=== PATIENT | male | born 1990 | race Caucasian/White ===

== ENCOUNTER → 2019-10-24 13:39 | Outpatient (BNVA) | payer MEDICAID, SELFPAY | PROVIDERS: Family Provider Family Medicine; PCP Family Medicine; Visit Provider Nurse Practitioner | DX: E11.65 Type 2 diabetes mellitus with hyperglycemia (principal); F41.9 Anxiety disorder, unspecified; F32.9 Major depressive disorder, single episode, unspecified; M1A.0790 Idiopathic chronic gout, unspecified ankle and foot, without tophus (tophi); Z76.89 Persons encountering health services in other specified circumstances | CPT/HCPCS: 80053; 80061; 82044; 83036 ==

== ENCOUNTER 2019-11-07 20:25 | Emergency (ER) | payer MEDICAID, SELFPAY ==
[2019-11-07 20:29] VITALS: BP 141/86; PULSE 95; RESP 16; TEMP 36.7; O2SAT 97; BMI 33.3
== END 2019-11-07 21:36 | disposition left against medical advice (07) ==
PROVIDERS: Emergency Provider Nurse Practitioner Family; Family Provider Family Medicine; PCP Nurse Practitioner
DX: K64.9 Unspecified hemorrhoids (principal); Z53.21 Procedure and treatment not carried out due to patient leaving prior to being seen by health care provider
CPT/HCPCS: 99281

== ENCOUNTER → 2019-11-13 17:06 | Outpatient (BNVA) | payer MEDICAID, SELFPAY | PROVIDERS: Family Provider Family Medicine; PCP Nurse Practitioner; Visit Provider Nurse Practitioner Family | DX: R05 Cough (principal); J40 Bronchitis, not specified as acute or chronic | CPT/HCPCS: 87804 ==

== ENCOUNTER 2020-03-28 09:49 | Emergency (ER) | payer MEDICAID, SELFPAY ==
[2020-03-28 10:02] VITALS: BP 137/86; PULSE 115; RESP 18; TEMP 37.2; O2SAT 94; BMI 34.9
--- NOTE | 2020-03-28 10:07 | ED_ITS ---
HPI - URI/Sore Throat General: Chief Complaint: Fever Stated Complaint: FEVER,SOB COUGH Time Seen by Provider: 03/28/20 10:03 Source: patient Mode of arrival: ambulatory Limitations: no limitations History of Present Illness: HPI Narrative: Patient is a 29-year-old male who presents to ED today with complaints of shortness of breath, difficulty breathing, cough over the past 2 to 3 days. He reports low-grade fevers of up to 100.1. He tells me he has had a sick contact, his sister, however then describes her symptoms only being congestion. He states he does have a history of asthma and has been out of his albuterol inhaler over the past few months. He states this does not feel like a typical asthma attack. Patient has not had any episodes of hemoptysis. He is not a smoker. He is having a little bit of a sore throat. He denies abdominal pain, nausea, vomiting, diarrhea. Urinary habits have been normal. No rash. 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 Patient reports he was asymptomatic when he was tested. MD elicited complaint: cough and other (SOB, difficulty breathing) Onset (ago): day(s) Consistency: constant Severity: moderate Able to tolerate fluids by mouth: Yes Exacerbating factors: exertion Relieving factors: nothing Associated symptoms: Reports fever(s) (up to 100.1); Deny abdominal pain, chills, chest pain, diarrhea, headache(s), nausea or vomiting Review of Systems Const: Reports: fever(s) (up to 100.1) and fatigue; Denies: chills or body aches Eyes: Denies: change in vision, blurry vision, photophobia, floaters or seeing flashes ENMT: Reports: odynophagia; Denies: throat pain or enlarged tonsils Card: Reports: dyspnea on exertion; Denies: chest pain, palpitations, irregular heart rhythm, edema, swelling of feet/ankles, lightheadedness, syncope, pre-syncope, orthopnea or leg pain with exertion Resp: Reports: dyspnea, productive cough and chest congestion; Denies: pain on inspiration or hemoptysis GI: Denies: abdominal pain, nausea, vomiting or diarrhea : Denies: flank pain, difficulty urinating, dysuria, urinary frequency or urinary urgency Musc: Denies: neck pain or back pain Skin/Breast: Denies: rash Neuro: Denies: headache(s) PFSH ED PFSH: Medical History (Updated 03/28/20 @ 11:54 by ANUJ Covarrubias) Anxiety and depression Asthma Diabetes GERD (gastroesophageal reflux disease) Gout Hypertension PTSD (post-traumatic stress disorder) Family History Mother Hypertension Father Heart disease Brother Hypertension Other Diabetes Social History Smoking and tobacco status: never smoked Marital status: Current occupational status: employed History of recent travel: No Physical Exam Const: COMMON NORMALS: no acute distress, patient oriented x3, no limitations and alert ORIENTATION/CONSCIOUSNESS: Yes oriented to person, Yes oriented to place and Yes oriented to time HENMT: COMMON NORMALS: normocephalic, atraumatic and oropharynx normal HEAD & SCALP: normal to inspection, normocephalic and atraumatic THROAT: posterior oropharynx normal, tonsils normal and uvula midline Chest: COMMONS NORMALS: normal inspection of the chest and normal palpation of entire chest wall Resp: COMMON NORMALS: normal respiratory effort and clear to auscultation bilaterally AUSCULTATION: clear to auscultation bilaterally Cardio: COMMON NORMALS: regular rate and regular rhythm RATE: regular rate RHYTHM: regular rhythm GI: COMMON NORMALS: Normal to inspection, nondistended, normoactive bowel sounds present, Soft to palpation, non-tender, No hepatosplenomegaly present and no masses PALPATION: Yes Soft to palpation and Yes No hepatosplenomegaly present Extremity: COMMON NORMALS: normal to inspection GENERAL: Yes normal exam except as noted Neuro: COMMON NORMALS: patient oriented x3 SENSORIUM/ORIENTATION: Yes alert, Yes oriented to person, Yes oriented to place and Yes oriented to time Skin: COMMON NORMALS: no rashes or lesions noted GENERAL SKIN EXAM: no rashes or lesions noted Course Vital Signs: Vital signs: Vital Signs Temperature 99.7 F H 03/28/20 10:16 Pulse Rate 105 H 03/28/20 12:09 Respiratory Rate 18 03/28/20 12:09 Blood Pressure 126/70 03/28/20 12:09 Pulse Oximetry 95 03/28/20 12:09 MDM - URI/Sore Throat MDM Narrative: Medical decision making narrative: Patient clinically appears well. He has no signs or symptoms of respiratory distress at this time. He will be retested for COVID now that he is symptomatic. Patient mildly tachycardic at 105. Lung sounds are clear to auscultation. His CXR is normal. He has a mild white count of 14.3. Patient's d-dimer is the slightest bit elevated at 0.62. He has no risk factors for pulmonary embolus. He has a Well's score of 1.5. At this time we will go ahead and treat patient for probable bronchitis and recommend he follow-up with PCP. He needs to quarantine until results of his COVID testing returns. Return to ED precautions given on worsening symptoms. Lab Data: Labs: Lab Results 03/28/20 03/28/20 03/28/20 Range/Units 11:03 11:03 11:03 WBC 14.3 H (4.0-10.0) 10^3/ uL RBC 5.48 H (4.1-5.3) 10^6/u L Hgb 16.6 (11.7-16.6) g/dL Hct 47.1 (42.0-52.0) % MCV 85.9 (80-94) fL MCH 30.3 (28.0-34.0) pg MCHC 35.2 (30.0-36.0) g/dL RDW 13.1 (12.1-15.1) % Plt Count 242 (130-400) 10^3/c mm MPV 10.4 (7.4-10.4) fL Neut % (Auto) 72.8 % Lymph % (Auto) 14.2 % [place] % (Auto) 7.7 % Eos % (Auto) 4.1 % Baso % (Auto) 0.6 % Neut # (Auto) 10.43 H (1.8-7.7) 10^3/u L Lymph # (Auto) 2.0 (0.8-4.8) 10^3/u L Madison # (Auto) 1.1 H (0.2-0.9) 10^3/u L Eos # (Auto) 0.6 (0.0-0.8) 10^3/u L Baso # (Auto) 0.1 (0.0-0.1) 10^3/u L Nucleated RBC % (a uto) 0 % Nucleated RBCs # 0.0 /100WBC D-Dimer 0.62 H (0-0.59) ug/mIFE U Sodium 137 (136-145) mmol/L Potassium 3.7 (3.5-5.1) mmol/L Chloride 100 (98-107) mmol/L Carbon Dioxide 22 (22-29) mmol/L Anion Gap 18.7 (5-19) BUN 8 (6-20) mg/dL Creatinine 0.9 (0.7-1.2) mg/dL GFR Calculation 99.8 (90-130) mL/min Glucose 244 H (65-115) mg/dL Calculated Osmolal ity 288 (285-295) mOsm/k g Calcium 9.1 (8.5-10.5) mg/dL Total Bilirubin 1.7 H (0.15-1.2) mg/dL AST 23 (0-40) U/L ALT 54 H (0-41) U/L Alkaline Phosphata se 75 (40-130) IU/L Total Protein 8.7 (6.6-8.7) g/dL Albumin 4.8 (3.5-5.2) g/dL Globulin 3.9 (1.3-4.6) g/dL Imaging Data^: CXR: Radiologist's impression: [address] [address] XRay Report Signed Patient: Vin Daugherty Unit #: [id number] : 1990 Age/Sex: 29 / M ADM Date: 03/28/20 Loc: ER Room/Bed: Attending Dr: Ordering Provider/Ordering MD: Emily Sanchez Date of Service: 03/28/20 Procedure(s): XR chest 1V portable [id number] Accession Number(s): [id number] Report Number: [id number] WS: [id number] Portable AP upright chest, 03/28/2020 Clinical Data: chest pain Comparison: PA and lateral chest, 08/28/2019. Findings: No nodules, masses or effusions are seen. The heart is normal. The pulmonary vascularity is not increased. No pneumonia or pneumothorax is seen. XR/XR chest 1V portable [id number] Impression: Negative chest. Dictated By: Jacqueline Trujillo MD Signed By: Jacqueline Trujillo MD Signed Date/Time: 03/28/20 1039 DD/ 1038 Discharge Plan Discharge Patient Disposition: Home Clinical Impression: Bronchitis Condition: Stable Prescriptions: New azithromycin 250 mg tablet See Rx Instructions .ROUTE .COMPLEX Qty: 6 RF: 0 No Action metformin 1,000 mg tablet 1,000 mg PO BID 30 Days Qty: 60 RF: 5 allopurinol 300 mg tablet 300 mg PO DAILY RF: 0 albuterol sulfate [ProAir HFA] 90 mcg/actuation HFA aerosol inhaler 2 puff INHALATION Q6H PRN (Reason: shortness of breath or wheezing) Qty: 8.5 RF: 0 Mucinex 600 mg Tablet Extended Release 12hr 1,200 mg PO Q4H PRN (Reason: unknown) RF: 0 Discharge Orders: Discharge Order (Routine); Ordered 03/28/20 Ordered By: Emily Sanchez Referrals: Kim Banks FNP [Primary Care Provider] - Activity Restrictions/Additional Instructions: Return to the emergency department for worsening shortness of breath, cough, uncontrollable fevers, chest pains, or any other concerns you may have. You need to contact your assisted and let them know your current symptoms so they can advise you on your orientation date. You need to quarantine until results of your testing. Discharge Date/Time: 03/28/20 12:09 Coding Level of Care Code ED Manager Rehab for Chg 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
--- NOTE | 2020-03-28 10:08 | XR_ITS ---
WS: [id number] Portable AP upright chest, 03/28/2020 Clinical Data: chest pain Comparison: PA and lateral chest, 08/28/2019. Findings: No nodules, masses or effusions are seen. The heart is normal. The pulmonary vascularity is not increased. No pneumonia or pneumothorax is seen. XR/XR chest 1V portable [id number] Impression: Negative chest.
[2020-03-28 10:16] VITALS: BP 137/86; PULSE 117; RESP 20; TEMP 37.6; O2SAT 93
[2020-03-28] MEDS: albuterol 8 gm MDI 2 PUFF INHALATION (10:33)
[2020-03-28 10:34] VITALS: RESP 18
[2020-03-28 11:15] LABS: Basophils # 0.1 10^3/uL (0.0-0.1); Basophils % 0.6 %; Eosinophils # 0.6 10^3/uL (0.0-0.8); Eosinophils % 4.1 %; Hematocrit 47.1 % (42.0-52.0); Hemoglobin 16.6 g/dL (11.7-16.6); Lymphocytes % 14.2 %; Mean Corpuscular HGB Conc 35.2 g/dL (30.0-36.0); Mean Corpuscular Hemoglobin 30.3 pg (28.0-34.0); Mean Corpuscular Volume 85.9 fL (80-94); Mean Platelet Volume 10.4 fL (7.4-10.4); Monocytes # 1.1 10^3/uL (0.2-0.9); Monocytes % 7.7 %; Neutrophils # 10.43 10^3/uL (1.8-7.7); Neutrophils % 72.8 %; Nucleated Red Blood Cells % 0 %; Platelet Count 242 10^3/cmm (130-400); Red Blood Count 5.48 10^6/uL (4.1-5.3); Red Cell Distribution Width 13.1 % (12.1-15.1); White Blood Count 14.3 10^3/uL (4.0-10.0)
[2020-03-28 11:29] LABS: D Dimer 0.62 ug/mIFEU (0-0.59)
[2020-03-28 11:33] LABS: Alanine Aminotransferase 54 U/L (0-41); Albumin Level 4.8 g/dL (3.5-5.2); Alkaline Phosphatase 75 IU/L (40-130); Anion Gap 18.7 (5-19); Aspartate Amino Transferase 23 U/L (0-40); Blood Urea Nitrogen 8 mg/dL (6-20); Calcium 9.1 mg/dL (8.5-10.5); Carbon Dioxide 22 mmol/L (22-29); Chloride 100 mmol/L (98-107); Globulin 3.9 g/dL (1.3-4.6); Glomerular Filtration Rate 99.8 mL/min (90-130); Glucose 244 mg/dL (65-115); Osmolality Calculated 288 mOsm/kg (285-295); Potassium 3.7 mmol/L (3.5-5.1); Sodium 137 mmol/L (136-145); Total Bilirubin 1.7 mg/dL (0.15-1.2); Total Protein 8.7 g/dL (6.6-8.7)
[2020-03-28 12:09] VITALS: BP 126/70; PULSE 105; RESP 18; O2SAT 95
[2020-03-29 19:39] LABS: Quest SARS-CoV-2 RNA NOT DETECTED (NOT DETECTED)
== END 2020-03-28 12:09 | disposition home or self-care (01) ==
PROVIDERS: Emergency Provider Physician Assistant; PCP Nurse Practitioner
DX: J40 Bronchitis, not specified as acute or chronic (principal); E11.9 Type 2 diabetes mellitus without complications; I10 Essential (primary) hypertension; J45.909 Unspecified asthma, uncomplicated
CPT/HCPCS: 12345; 36415; 71045; 80053; 85025; 85378; 87635; 94640; 99282; 99283; J3535

== ENCOUNTER 2020-05-19 21:47 | Emergency (ER) | payer MEDICAID, SELFPAY ==
[2020-05-19 22:09] VITALS: BP 137/78; PULSE 101; RESP 16; TEMP 36.6; O2SAT 97; BMI 34.6
--- NOTE | 2020-05-19 22:34 | ED_ITS ---
HPI - Epistaxis General: Chief complaint: Epistaxis Stated complaint: nosebleed/multiple complaints Time Seen by Provider: 05/19/20 22:34 Source: patient Mode of arrival: ambulatory Limitations: no limitations History of Present Illness: HPI Narrative: Patient is a 29-year-old male who presents to ED today for evaluation of a nosebleed that happened earlier today. Patient tells me a few hours ago he was sitting on the toilet when he felt his right nare began to run and states he noticed some blood on the toilet paper when he wiped his nose. Patient denies any injury or trauma to his nose. He is not on anticoagulation. He has not had any bleeding since the event. He has no other complaints at this time. MD complaint: epistaxis Location: right nostril Onset (ago): hour(s) Duration: now resolved Associated symptoms: Reports no associated symptoms; Deny fever(s), headache(s), sinus pain or vomiting Review of Systems Const: Denies: fever(s), chills, body aches, fatigue or malaise Eyes: Denies: change in vision, blurry vision, photophobia, floaters or seeing flashes ENMT: Reports: epistaxis; Denies: throat pain, odynophagia, swelling of lips/tongue, dental pain, ear or mastoid pain, ear discharge, change in hearing, tinnitus, disequilibrium, nasal discharge, nasal congestion, nasal obstruction, post nasal drip or sinus pain Card: Denies: chest pain Resp: Denies: dyspnea GI: Denies: abdominal pain, nausea or vomiting Musc: Denies: neck pain or back pain Skin/Breast: Denies: rash Neuro: Denies: headache(s), numbness in extremities, weakness in extremities, sensory changes, lack of coordination, difficulty walking, frequent falls, dizziness, vertigo, confusion, behavioral changes, Slurred speech present or seizure-like activity [facility] ED PFSH: Medical History (Updated 05/19/20 @ 22:53 by ANUJ Covarrubias) Anxiety and depression Asthma Diabetes GERD (gastroesophageal reflux disease) Gout Hypertension PTSD (post-traumatic stress disorder) Family History Mother Hypertension Father Heart disease Brother Hypertension Other Diabetes Social History Smoking and tobacco status: never smoked Marital status: Current occupational status: employed History of recent travel: No Current gender identity: Male Physical Exam Const: COMMON NORMALS: no acute distress, average body habitus, patient oriented x3, healthy appearing, alert and well nourished ORIENTATION/CONSCIOUSNESS: Yes oriented to person, Yes oriented to place and Yes oriented to time HENMT: COMMON NORMALS: normocephalic, atraumatic, hearing grossly normal bilaterally, external ears normal, EAC's normal, TM's normal bilaterally, Normal external nose present, moist oral mucous membranes, oropharynx normal and gingiva normal HEAD & SCALP: normal to inspection, normocephalic and atraumatic FACE & SINUS: normal facial exam and sinuses nontender NOSE: Normal external nose present and Other nasal findings present (very small amount of inflammation to R Kesselbach's plexus; no bleeding) EXTERNAL EAR: Yes external ears normal EXTERNAL AUDITORY CANAL: EAC's normal TYMPANIC MEMBRANE: TM's normal bilaterally MOUTH: Normal oral and palatal mucosa present, lip normal and tongue normal THROAT: posterior oropharynx normal, tonsils normal and uvula midline Eye: COMMON NORMALS: Equal, round and reactive pupils present, EOMs intact bilaterally, conjunctivae normal and no scleral icterus GENERAL EYE: appearance normal, both eyes and all related structures CONJUNCTIVA: Yes conjunctivae normal PUPIL: Yes Equal, round and reactive pupils present Neck/C-Spine: COMMON NORMALS: full ROM, no lymphadenopathy and no meningeal signs Neuro: COMMON NORMALS: patient oriented x3 SENSORIUM/ORIENTATION: Yes alert, Yes oriented to person, Yes oriented to place and Yes oriented to time MENINGEAL SIGNS: Yes no meningeal signs Course Vital Signs: Vital signs: Vital Signs Temperature 97.9 F 05/19/20 22:09 Pulse Rate 88 05/19/20 23:01 Respiratory Rate 14 05/19/20 23:01 Blood Pressure 132/77 05/19/20 23:01 Pulse Oximetry 100 05/19/20 23:01 MDM - Epistaxis MDM Narrative: Medical decision making narrative: Patient has no bleeding now and hasn't had any for hours. He was given nasal clamp he can use if bleeding begins again. Can also use OTC Afrin. Discussed return to ED precautions given. Discharge Plan Discharge Patient Disposition: Home Clinical Impression: Anterior epistaxis Condition: Stable Prescriptions: No Action albuterol sulfate [ProAir HFA] 90 mcg/actuation HFA aerosol inhaler 2 puff INHALATION Q6H PRN (Reason: shortness of breath or wheezing) Qty: 8.5 RF: 0 allopurinol 300 mg tablet 300 mg PO DAILY 90 Days Qty: 90 RF: 0 metformin 1,000 mg tablet 1,000 mg PO BID 90 Days Qty: 180 RF: 1 fluticasone propion-salmeterol [Advair Diskus] 100-50 mcg/dose blister with device 1 inh INHALATION BID Qty: 60 RF: 0 ketoconazole 2 % cream 1 applic TOPICAL BID 28 Days Qty: 30 RF: 1 Discharge Orders: Discharge Order (Routine); Ordered 05/19/20 Ordered By: Emily Sanchez Referrals: Kim Banks FNP [Primary Care Provider] - Patient Instructions: Epistaxis - Adult Discharge Date/Time: 05/19/20 23:03 Coding Level of Care Code ED Lining Marker for Ria Kim
[2020-05-19 23:01] VITALS: BP 132/77; PULSE 88; RESP 14; O2SAT 100
== END 2020-05-19 23:03 | disposition home or self-care (01) ==
PROVIDERS: Emergency Provider Physician Assistant; PCP Nurse Practitioner
DX: R04.0 Epistaxis (principal); E11.9 Type 2 diabetes mellitus without complications; I10 Essential (primary) hypertension
CPT/HCPCS: 12345; 99281

== ENCOUNTER 2020-05-28 20:22 | Emergency (ER) | payer MEDICAID, SELFPAY ==
[2020-05-28 20:28] VITALS: BP 134/79; PULSE 129; RESP 24; TEMP 39.5; O2SAT 95; BMI 34.6
--- NOTE | 2020-05-28 20:55 | XRR_ITS ---
PROCEDURE INFORMATION: Exam: XR Chest, 1 View Exam date and time: 05/28/2020 10:03 PM Age: 29 years old Clinical indication: Cough and fever; COVID-19 R/O TECHNIQUE: Imaging protocol: XR of the chest Views: 1 view. COMPARISON: CR XR chest 1V portable [id number] 03/28/2020 10:24 AM FINDINGS: Lungs: No focal peripheral lung consolidation, air bronchogram formation, or silhouette sign. Pleural space: No pleural effusion or pneumothorax. Heart/Mediastinum: The cardiac silhouette is not enlarged. The mediastinal contours are normal. Bones/joints: No acute osseous abnormality. XR/XR chest 1V portable [id number] IMPRESSION: No radiographic sign of pneumonia. However, noncontrast CT CHEST is more sensitive in detecting pulmonary ground-glass opacities that are seen with COVID-19 pneumonia.
--- NOTE | 2020-05-28 21:17 | W.ED.SOB ---
HPI - SOB/Dyspnea General: Chief Complaint: Shortness of Breath/Dyspnea Stated Complaint: sob/fever/muscle aches/side pain Time Seen by Provider: 05/28/20 20:37 History of Present Illness: HPI Narrative: This patient is a 29-year-old male who comes in today with shortness of breath, cough, fever. He said he started having a little bit of a cough and shortness of breath while he was at work this morning. He works at [employer]. He left work and by the time he got home he had a high fever and body aches. He comes in with cough, shortness of breath, fever of 103. He is tachycardic and borderline on his oxygen saturations. He has a history of asthma but generally does not have to use his inhalers very much. He also has a history of type 2 diabetes. He has been told at times that he might have high blood pressure. He also has gout. He does not know of any known covid exposures but there are some people at the [facility] that are on quarantine. elicited complaint: shortness of breath, cough and pain with inspiration Pertinent past history: asthma and diabetes Onset (ago): day(s) (Just started today) Timing: constant Severity: severe Exacerbating factors: nothing and coughing Relieving factors: nothing Known history of: asthma and diabetes Associated symptoms: Reports cough, fever(s), myalgias and nausea; Deny chest pain Treatment prior to arrival: none Review of Systems General: Reports: 10 or more systems reviewed and unremarkable except in HPI and below Const: Reports: fever(s), chills, body aches, fatigue and malaise Eyes: Denies: change in vision ENMT: Denies: odynophagia Card: Denies: chest pain or swelling of feet/ankles Resp: Reports: dyspnea and non-productive cough; Denies: productive cough GI: Reports: nausea and diarrhea : Denies: flank pain Musc: Denies: neck pain or back pain Skin/Breast: Denies: rash Neuro: Denies: headache(s), numbness in extremities or weakness in extremities Shade/Lymph: Denies: easy bruising or easy bleeding PFS ED PFSH: Medical History Anxiety and depression Asthma Diabetes GERD (gastroesophageal reflux disease) Gout Hypertension PTSD (post-traumatic stress disorder) Family History Mother Hypertension Father Heart disease Brother Hypertension Other Diabetes Social History Smoking and tobacco status: never smoked Marital status: Current occupational status: employed History of recent travel: No Current gender identity: Male Physical Exam Const: COMMON NORMALS: average body habitus, patient oriented x3, no limitations and alert GENERAL APPEARANCE: cooperative and ill appearing HENMT: HEAD & SCALP: normal to inspection FACE & SINUS: normal facial exam Eye: GENERAL EYE: appearance normal, both eyes and all related structures Neck/C-Spine: COMMON NORMALS: supple, no meningeal signs and no JVD Chest: COMMONS NORMALS: normal inspection of the chest Resp: COMMON NORMALS: clear to auscultation bilaterally EFFORT & INSPECTION: Yes tachypneic and Yes labored AUSCULTATION: clear to auscultation bilaterally Cardio: COMMON NORMALS: no JVD, regular rate, regular rhythm and No murmurs present (Cardio) RATE: regular rate RHYTHM: regular rhythm GI: COMMON NORMALS: Normal to inspection, nondistended, normoactive bowel sounds present, Soft to palpation and non-tender INSPECTION: Yes normal to inspection AUSCULTATION: Yes normoactive bowel sounds PALPATION: Yes Soft to palpation Back/Pelvis: COMMON NORMALS: thoracic and lumbar spine normal to inspection Extremity: COMMON NORMALS: normal to inspection Neuro: COMMON NORMALS: patient oriented x3, moves all extremities, no focal motor deficits and no sensory deficits noted SENSORIUM/ORIENTATION: Yes alert MENINGEAL SIGNS: Yes no meningeal signs Psych: COMMON NORMALS: mental status grossly normal, cooperative and normal affect Skin: COMMON NORMALS: no rashes or lesions noted and turgor normal GENERAL SKIN EXAM: no rashes or lesions noted and turgor normal Course ED course: Patient was given IV fluids and Tylenol. After that he reported feeling much better. His heart rate came down into the 110s. Oxygen saturations on room air remained between 93 and 96%. Chest x-ray looks pretty good and inflammatory markers are not originally high. This is the first day of illness. He worked today at the [employer] although he did wear a mask. He will contact his DON and let them know that he tested positive today. He also understands he will be contacted by the health department for other contact tracing. We discussed the risks associated with asthma and diabetes. He is otherwise healthy and not overweight. He should do fine. We discussed when to return to the ED. We also discussed the potential for worsening of his condition between the seventh and 10th day. He understands the idea of self quarantine. He understands if there is nothing currently that is recommended for treatment at this stage. He will do symptomatic treatment including ibuprofen and Tylenol for fever, plenty of fluids, rest. Vital Signs: Vital signs: Vital Signs Temperature 103.1 F H 05/28/20 20:28 Pulse Rate 129 H 05/28/20 20:28 Respiratory Rate 24 H 05/28/20 20:28 Blood Pressure 134/79 05/28/20 20:28 Pulse Oximetry 94 05/28/20 21:21 MDM - SOB/Dyspnea Lab Data: Labs: Lab Results 05/28/20 05/28/20 05/28/20 Range/Units 21:21 21:21 21:21 WBC 7.3 (4.0-10.0) 10^3/ uL RBC 4.97 (4.1-5.3) 10^6/u L Hgb 15.4 (11.7-16.6) g/dL Hct 42.7 (42.0-52.0) % MCV 85.9 (80-94) fL MCH 31.0 (28.0-34.0) pg MCHC 36.1 H (30.0-36.0) g/dL RDW 12.9 (12.1-15.1) % Plt Count 208 (130-400) 10^3/c mm MPV 10.6 H (7.4-10.4) fL Neut % (Auto) 75.4 % Lymph % (Auto) 9.5 % [place] % (Auto) 11.6 % Eos % (Auto) 1.9 % Baso % (Auto) 1.0 % Neut # (Auto) 5.47 (1.8-7.7) 10^3/u L Lymph # (Auto) 0.7 L (0.8-4.8) 10^3/u L [place] # (Auto) 0.8 (0.2-0.9) 10^3/u L Eos # (Auto) 0.1 (0.0-0.8) 10^3/u L Baso # (Auto) 0.1 (0.0-0.1) 10^3/u L Nucleated RBC % (a uto) 0 % Nucleated RBCs # 0.0 /100WBC PT 12.60 (12.1-14.9) SECO NDS INR 0.92 (0.8-1.2) D-Dimer 0.29 (0-0.59) ug/mIFE U Sodium 140 (136-145) mmol/L Potassium 3.4 L (3.5-5.1) mmol/L Chloride 102 (98-107) mmol/L Carbon Dioxide 23 (22-29) mmol/L Anion Gap 18.4 (5-19) BUN 8 (6-20) mg/dL Creatinine 1.0 (0.7-1.2) mg/dL GFR Calculation 88.3 L (90-130) mL/min Glucose 157 H (65-115) mg/dL Calculated Osmolal ity 292 (285-295) mOsm/k g Lactic Acid (0.5-2.2) mmol/L Calcium 9.7 (8.5-10.5) mg/dL Total Bilirubin 1.6 H (0.15-1.2) mg/dL AST 61 H (0-40) U/L ALT 105 H (0-41) U/L Alkaline Phosphata se 64 (40-130) IU/L NT-Pro-B Natriuret Pep 39 (0-125) pg/mL Total Protein 7.9 (6.6-8.7) g/dL Albumin 4.7 (3.5-5.2) g/dL Globulin 3.2 (1.3-4.6) g/dL Influenza Type A A g (Negative) Influenza Type B A g (Negative) SARS-CoV-2 Ag (Rap id) (Negative) 05/28/20 05/28/20 05/28/20 Range/Units 21:21 21:21 21:21 WBC (4.0-10.0) 10^3/ uL RBC (4.1-5.3) 10^6/u L Hgb (11.7-16.6) g/dL Hct (42.0-52.0) % MCV (80-94) fL MCH (28.0-34.0) pg MCHC (30.0-36.0) g/dL RDW (12.1-15.1) % Plt Count (130-400) 10^3/c mm MPV (7.4-10.4) fL Neut % (Auto) % Lymph % (Auto) % [place] % (Auto) % Eos % (Auto) % Baso % (Auto) % Neut # (Auto) (1.8-7.7) 10^3/u L Lymph # (Auto) (0.8-4.8) 10^3/u L [place] # (Auto) (0.2-0.9) 10^3/u L Eos # (Auto) (0.0-0.8) 10^3/u L Baso # (Auto) (0.0-0.1) 10^3/u L Nucleated RBC % (a uto) % Nucleated RBCs # /100WBC PT (12.1-14.9) SECO NDS INR (0.8-1.2) D-Dimer (0-0.59) ug/mIFE U Sodium (136-145) mmol/L Potassium (3.5-5.1) mmol/L Chloride (98-107) mmol/L Carbon Dioxide (22-29) mmol/L Anion Gap (5-19) BUN (6-20) mg/dL Creatinine (0.7-1.2) mg/dL GFR Calculation (90-130) mL/min Glucose (65-115) mg/dL Calculated Osmolal ity (285-295) mOsm/k g Lactic Acid 3.2 H (0.5-2.2) mmol/L Calcium (8.5-10.5) mg/dL Total Bilirubin (0.15-1.2) mg/dL AST (0-40) U/L ALT (0-41) U/L Alkaline Phosphata se (40-130) IU/L NT-Pro-B Natriuret Pep (0-125) pg/mL Total Protein (6.6-8.7) g/dL Albumin (3.5-5.2) g/dL Globulin (1.3-4.6) g/dL Influenza Type A A g Negative (Negative) Influenza Type B A g Negative (Negative) SARS-CoV-2 Ag (Rap id) Positive H (Negative) Discharge Plan Discharge Patient Disposition: Home Clinical Impression: COVID-19 Diabetes Qualifiers: Diabetes mellitus type: type 2 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 Diabetes mellitus complication status: with other specified complication Qualified Code(s): E11.69 - Type 2 diabetes mellitus with other specified complication Asthma Qualifiers: Asthma severity: mild Asthma persistence: intermittent Asthma complication type: unspecified Qualified Code(s): J45.20 - Mild intermittent asthma, uncomplicated Condition: Stable Prescriptions: No Action albuterol sulfate [ProAir HFA] 90 mcg/actuation HFA aerosol inhaler 2 puff INHALATION Q6H PRN (Reason: shortness of breath or wheezing) Qty: 8.5 RF: 0 allopurinol 300 mg tablet 300 mg PO DAILY 90 Days Qty: 90 RF: 0 metformin 1,000 mg tablet 1,000 mg PO BID 90 Days Qty: 180 RF: 1 fluticasone propion-salmeterol [Advair Diskus] 100-50 mcg/dose blister with device 1 inh INHALATION BID Qty: 60 RF: 0 ketoconazole 2 % cream 1 applic TOPICAL BID 28 Days Qty: 30 RF: 1 Discharge Orders: Discharge Order (Routine); Ordered 05/28/20 Ordered By: Nisa Lowe Discharge Diet: Usual diet Discharge Activity: Limit activity as instructed Patient Instructions: Upper Respiratory Infection (ED) Activity Restrictions/Additional Instructions: Remain home and self quarantined until instructed to do otherwise by the health department. Expect to be contacted by the health department for contact tracing. Rest. Take ibuprofen and Tylenol for fever. Drink plenty of fluids. Return to the ED if difficulty breathing or any other new or concerning symptoms. Coding Level of Care Code ED Die Try Out Worker Stamping for Ria Kim Exam Comprehensive
--- NOTE | 2020-05-28 21:20 | PC.NURSE ---
PATIENT SWABBED FOR COVID AT THIS TIME
[2020-05-28 21:21] VITALS: O2SAT 94
[2020-05-28] MEDS: dexamethasone 4 mg/mL INJ 6 MG IVP (21:24)
[2020-05-28] MEDS: acetaminophen 500 mg Tablet 1000 MG PO (21:24)
[2020-05-28] MEDS: sodium chloride 0.9% 1,000 ML 150 ML IV (21:24)
[2020-05-28 21:40] LABS: Basophils # 0.1 10^3/uL (0.0-0.1); Eosinophils # 0.1 10^3/uL (0.0-0.8); Eosinophils % 1.9 %; Hematocrit 42.7 % (42.0-52.0); Hemoglobin 15.4 g/dL (11.7-16.6); Lymphocytes # 0.7 10^3/uL (0.8-4.8); Lymphocytes % 9.5 %; Mean Corpuscular HGB Conc 36.1 g/dL (30.0-36.0); Mean Corpuscular Volume 85.9 fL (80-94); Mean Platelet Volume 10.6 fL (7.4-10.4); Monocytes # 0.8 10^3/uL (0.2-0.9); Monocytes % 11.6 %; Neutrophils # 5.47 10^3/uL (1.8-7.7); Neutrophils % 75.4 %; Nucleated Red Blood Cells % 0 %; Platelet Count 208 10^3/cmm (130-400); Red Blood Count 4.97 10^6/uL (4.1-5.3); Red Cell Distribution Width 12.9 % (12.1-15.1); White Blood Count 7.3 10^3/uL (4.0-10.0)
[2020-05-28 21:44] LABS: INR 0.92 (0.8-1.2)
[2020-05-28 21:47] LABS: D Dimer 0.29 ug/mIFEU (0-0.59)
[2020-05-28 21:57] LABS: Lactic Sepsis W/Reflex 3.2 mmol/L (0.5-2.2)
[2020-05-28 22:00] LABS: Influenza A by IFA Negative (Negative); Influenza B by IFA Negative (Negative)
[2020-05-28 22:01] LABS: SARS Covid-2 Antigen Positive (Negative)
[2020-05-28 22:03] LABS: Alanine Aminotransferase 105 U/L (0-41); Albumin Level 4.7 g/dL (3.5-5.2); Alkaline Phosphatase 64 IU/L (40-130); Anion Gap 18.4 (5-19); Aspartate Amino Transferase 61 U/L (0-40); Blood Urea Nitrogen 8 mg/dL (6-20); Calcium 9.7 mg/dL (8.5-10.5); Carbon Dioxide 23 mmol/L (22-29); Chloride 102 mmol/L (98-107); Globulin 3.2 g/dL (1.3-4.6); Glomerular Filtration Rate 88.3 mL/min (90-130); Glucose 157 mg/dL (65-115); NT Pro B Type Natriuretic Pept 39 pg/mL (0-125); Osmolality Calculated 292 mOsm/kg (285-295); Potassium 3.4 mmol/L (3.5-5.1); Sodium 140 mmol/L (136-145); Total Bilirubin 1.6 mg/dL (0.15-1.2); Total Protein 7.9 g/dL (6.6-8.7)
[2020-05-28 22:33] VITALS: O2SAT 94
[2020-05-28 23:14] LABS: Reflex Lactate Order REFLEX LACTIC ORDERD
[2020-05-28 23:23] LABS: Procalcitonin 0.26 ng/mL (0-0.5)
[2020-05-28 23:34] LABS: C Reactive Protein 11.7 mg/L (0.0-4.9)
== END 2020-05-28 22:33 | disposition home or self-care (01) ==
PROVIDERS: Emergency Provider Emergency Medicine
DX: U07.1 COVID-19 (principal); E11.69 Type 2 diabetes mellitus with other specified complication; J45.20 Mild intermittent asthma, uncomplicated; Z79.84 Long term (current) use of oral hypoglycemic drugs; I10 Essential (primary) hypertension
CPT/HCPCS: 12345; 71045; 80053; 83605; 83880; 84145; 85025; 85378; 85610; 86140; 87426; 87804; 96374; 96375; 99283; J1100; J7030

== ENCOUNTER 2020-06-05 20:25 | Emergency (ER) | payer MEDICAID, SELFPAY ==
--- NOTE | 2020-06-05 20:29 | XR_ITS ---
WS: [id number] Portable AP upright chest, 06/05/2020 Clinical Data: covid Comparison: Portable chest, 05/28/2020. Findings: There is a patchy opacity adjacent to the right cardiac border. This could be within the ri ght middle lobe or superior segment of the right lower lobe and represent minimal pneumonia. It is pa tchy atelectasis overlying the left diaphragm. No nodules, masses or effusions are seen. The heart is normal. The pulmonary vascularity is not increased. No pneumothorax is seen. XR/XR chest 1V portable [id number] Impression: 1. Patchy opacity adjacent to right cardiac border which could represent minima l pneumonia. 2. Minimal atelectasis over the surface of the left diaphragm.
--- NOTE | 2020-06-05 20:44 | W.ED.FEVER ---
HPI - Fever General: Chief Complaint: Shortness of Breath/Dyspnea Stated Complaint: fever/covid + Time Seen by Provider: 06/05/20 20:27 History of Present Illness: HPI Narrative: 29-year-old male patient presents to the emergency department with 7-day history of positive COVID test, + symptoms. He reports employed at a local [employer], developed nausea vomiting with high fever today. Reports unable to control fever with [id number] medication, Tylenol, was advised was not able to take ibuprofen due to his use of metformin secondary to diabetes. He reports cough congestion. MD elicited complaint: fever, malaise and weakness Onset (ago): hour(s) (24) Context: sick contacts and other(s) with similar symptoms Exacerbating factors: exertion Relieving factors: acetaminophen and rest Associated symptoms: Reports chills, cough, diarrhea (4-5 today), myalgias, nasal congestion, nausea, night sweats, sore throat and vomiting; Deny chest pain, dysuria or headache(s) Treatments prior to arrival fever: acetaminophen Review of Systems General: Reports: 10 or more systems reviewed and unremarkable except in HPI and below Const: Reports: fever(s), chills, body aches, malaise and night sweats Eyes: Denies: blurry vision or eye redness ENMT: Reports: nasal congestion Card: Denies: chest pain, palpitations or irregular heart rhythm Resp: Reports: non-productive cough; Denies: dyspnea, productive cough or wheezing GI: Reports: nausea, vomiting and diarrhea (4-5 today) : Denies: dysuria Musc: Denies: back pain Skin/Breast: Denies: rash or pruritus Neuro: Denies: headache(s), weakness in extremities or behavioral changes Shade/Lymph: Denies: easy bruising PFS ED PFSH: Medical History (Updated 06/05/20 @ 21:49 by SOFIA Kowalski) Anxiety and depression Asthma Diabetes GERD (gastroesophageal reflux disease) Gout Hypertension PTSD (post-traumatic stress disorder) Family History Mother Hypertension Father Heart disease Brother Hypertension Other Diabetes Social History Smoking and tobacco status: never smoked Marital status: Current occupational status: employed History of recent travel: No Current gender identity: Male Physical Exam Const: COMMON NORMALS: patient oriented x3, healthy appearing, alert and well nourished GENERAL APPEARANCE: cooperative and ill appearing NUTRITIONAL APPEARANCE: obese ORIENTATION/CONSCIOUSNESS: Yes awake, Yes oriented to person, Yes oriented to place and Yes oriented to time HENMT: COMMON NORMALS: normocephalic, external ears normal, TM's normal bilaterally, Normal external nose present and moist oral mucous membranes HEAD & SCALP: normocephalic FACE & SINUS: normal facial exam NOSE: Normal external nose present EXTERNAL EAR: Yes external ears normal TYMPANIC MEMBRANE: TM's normal bilaterally MOUTH: Normal oral and palatal mucosa present THROAT: uvula midline, posterior oropharynx abnormal and postnasal drainage Eye: COMMON NORMALS: Equal, round and reactive pupils present and EOMs intact bilaterally GENERAL EYE: appearance normal, both eyes and all related structures PUPIL: Yes Equal, round and reactive pupils present Neck/C-Spine: COMMON NORMALS: full ROM and no lymphadenopathy GENERAL: Yes normal visual inspection and Yes trachea midline CERVICAL SPINE: Yes cervical ROM normal Lymph: LYMPHATIC: no lymphadenopathy noted Chest: COMMONS NORMALS: normal inspection of the chest Resp: COMMON NORMALS: normal respiratory effort and clear to auscultation bilaterally AUSCULTATION: clear to auscultation bilaterally Cardio: COMMON NORMALS: regular rhythm, S1 normal heart sound present, S2 normal heart sound present and Peripheral pulses 2+ throughout RHYTHM: regular rhythm HEART SOUNDS: S1 normal heart sound present and S2 normal heart sound present PERIPHERAL PULSES: Peripheral pulses 2+ throughout GI: COMMON NORMALS: Normal to inspection, nondistended, normoactive bowel sounds present, Soft to palpation and non-tender INSPECTION: Yes normal to inspection PALPATION: Yes Soft to palpation : COMMON NORMALS: Yes no CVA tenderness BLADDER/KIDNEY EXAM: Yes no CVA tenderness Back/Pelvis: COMMON NORMALS: no CVA tenderness and thoracic and lumbar spine normal to inspection Extremity: COMMON NORMALS: normal to inspection and capillary refill normal Neuro: COMMON NORMALS: patient oriented x3 and no focal motor deficits SENSORIUM/ORIENTATION: Yes alert, Yes oriented to person, Yes oriented to place and Yes oriented to time Psych: COMMON NORMALS: mental status grossly normal, Normal thought process present and cooperative ACTIVITY/MOTOR BEHAVIOR: Yes appropriate eye contact THOUGHT PROCESS: Normal thought process present Skin: COMMON NORMALS: no rashes or lesions noted and turgor normal GENERAL SKIN EXAM: no rashes or lesions noted and turgor normal Course ED course: 29-year-old male patient presents to the emergency department with positive COVID-19 test approximately 7 days ago. Reported symptom onset today, fever chills and nausea. He reports feeling worse, IV fluids administered, Zofran administered with improvement of nausea. Was able to tolerate p.o. fluids during his stay, administered dexamethasone due to COVID positive status with respiratory symptoms of shortness of breath. He was feeling better, wants to go home, agrees to return to the emergency department if he develops worsening symptoms such as shortness of breath, continued vomiting despite use of Zofran or development of concerning symptoms. Vital Signs: Vital signs: Vital Signs Temperature 103 F H 06/05/20 20:48 Pulse Rate 113 H 06/05/20 20:48 Respiratory Rate 30 H 06/05/20 20:48 Blood Pressure 136/78 06/05/20 20:48 Pulse Oximetry 96 06/05/20 20:48 MDM - Fever Lab Data: Labs: Lab Results 06/05/20 06/05/20 Range/Units 20:36 21:07 WBC 6.1 (4.0-10.0) 10^3/ uL RBC 5.09 (4.1-5.3) 10^6/u L Hgb 15.3 (11.7-16.6) g/dL Hct 44.0 (42.0-52.0) % MCV 86.4 (80-94) fL MCH 30.1 (28.0-34.0) pg MCHC 34.8 (30.0-36.0) g/dL RDW 12.7 (12.1-15.1) % Plt Count 271 (130-400) 10^3/c mm MPV 10.2 (7.4-10.4) fL Neut % (Auto) 68.9 % Lymph % (Auto) 19.7 % [place] % (Auto) 9.4 % Eos % (Auto) 1.3 % Baso % (Auto) 0.2 % Neut # (Auto) 4.19 (1.8-7.7) 10^3/u L Lymph # (Auto) 1.2 (0.8-4.8) 10^3/u L [place] # (Auto) 0.6 (0.2-0.9) 10^3/u L Eos # (Auto) 0.1 (0.0-0.8) 10^3/u L Baso # (Auto) 0.0 (0.0-0.1) 10^3/u L Nucleated RBC % (a uto) 0 % Nucleated RBCs # 0.0 /100WBC Sodium 139 (136-145) mmol/L Potassium 3.4 L (3.5-5.1) mmol/L Chloride 103 (98-107) mmol/L Carbon Dioxide 23 (22-29) mmol/L Anion Gap 16.4 (5-19) BUN 7 (6-20) mg/dL Creatinine 0.8 (0.7-1.2) mg/dL GFR Calculation 114.3 (90-130) mL/min Glucose 187 H (65-115) mg/dL Calculated Osmolal ity 291 (285-295) mOsm/k g Calcium 9.1 (8.5-10.5) mg/dL Total Bilirubin 1.0 (0.15-1.2) mg/dL AST 46 H (0-40) U/L ALT 76 H (0-41) U/L Alkaline Phosphata se 61 (40-130) IU/L Total Protein 8.0 (6.6-8.7) g/dL Albumin 4.6 (3.5-5.2) g/dL Globulin 3.4 (1.3-4.6) g/dL Imaging Data^: CXR: My impression: No acute process, radiologist interpretation pending Discharge Plan Discharge Patient Disposition: Home Clinical Impression: COVID-19 Fever Qualifiers: Fever type: unspecified Qualified Code(s): R50.9 - Fever, unspecified Condition: Stable Prescriptions: New Zofran 4 mg tablet 4 mg PO Q4H PRN (Reason: nausea and vomiting) Qty: 10 RF: 0 No Action albuterol sulfate [ProAir HFA] 90 mcg/actuation HFA aerosol inhaler 2 puff INHALATION Q6H PRN (Reason: shortness of breath or wheezing) Qty: 8.5 RF: 0 allopurinol 300 mg tablet 300 mg PO DAILY 90 Days Qty: 90 RF: 0 metformin 1,000 mg tablet 1,000 mg PO BID 90 Days Qty: 180 RF: 1 fluticasone propion-salmeterol [Advair Diskus] 100-50 mcg/dose blister with device 1 inh INHALATION BID Qty: 60 RF: 0 ketoconazole 2 % cream 1 applic TOPICAL BID 28 Days Qty: 30 RF: 1 terbinafine HCl [Antifungal (terbinafine)] 1 % cream 1 applic TOPICAL BID 30 Days Qty: 15 RF: 0 Discharge Orders: Discharge Order (Routine); Ordered 06/05/20 Ordered By: Sherry Aponte Discharge Diet: Advance as tolerated and Clear Liquid Discharge Activity: Resume usual activity Patient Instructions: Viral Syndrome (ED), Vomiting - Adult Activity Restrictions/Additional Instructions: You may run fever which is normal process with viral illness, you may take ibuprofen and or Tylenol as needed for pain/fever Off work until off quarantine You will need to self quarantine at home due to COVID illness Return to the emergency department if you develop worsening shortness of breath, difficulty breathing or vomiting with inability to keep fluids down Discharge Date/Time: 06/05/20 21:59 Coding Level of Care Code 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
[2020-06-05 20:48] VITALS: BP 136/78; PULSE 113; RESP 30; TEMP 39.4; O2SAT 96; BMI 34.6
[2020-06-05] MEDS: sodium chloride 0.9% 500 ML 999 ML IV (21:14)
[2020-06-05] MEDS: ondansetron 2 mg/ML SDV 2 mL 4 MG IVP (21:14)
[2020-06-05 21:16] LABS: Basophils % 0.2 %; Eosinophils # 0.1 10^3/uL (0.0-0.8); Eosinophils % 1.3 %; Hemoglobin 15.3 g/dL (11.7-16.6); Lymphocytes # 1.2 10^3/uL (0.8-4.8); Lymphocytes % 19.7 %; Mean Corpuscular HGB Conc 34.8 g/dL (30.0-36.0); Mean Corpuscular Hemoglobin 30.1 pg (28.0-34.0); Mean Corpuscular Volume 86.4 fL (80-94); Mean Platelet Volume 10.2 fL (7.4-10.4); Monocytes # 0.6 10^3/uL (0.2-0.9); Monocytes % 9.4 %; Neutrophils # 4.19 10^3/uL (1.8-7.7); Neutrophils % 68.9 %; Nucleated Red Blood Cells % 0 %; Platelet Count 271 10^3/cmm (130-400); Red Blood Count 5.09 10^6/uL (4.1-5.3); Red Cell Distribution Width 12.7 % (12.1-15.1); White Blood Count 6.1 10^3/uL (4.0-10.0)
[2020-06-05 21:35] LABS: Alanine Aminotransferase 76 U/L (0-41); Albumin Level 4.6 g/dL (3.5-5.2); Alkaline Phosphatase 61 IU/L (40-130); Anion Gap 16.4 (5-19); Aspartate Amino Transferase 46 U/L (0-40); Blood Urea Nitrogen 7 mg/dL (6-20); Calcium 9.1 mg/dL (8.5-10.5); Carbon Dioxide 23 mmol/L (22-29); Chloride 103 mmol/L (98-107); Globulin 3.4 g/dL (1.3-4.6); Glomerular Filtration Rate 114.3 mL/min (90-130); Glucose 187 mg/dL (65-115); Osmolality Calculated 291 mOsm/kg (285-295); Potassium 3.4 mmol/L (3.5-5.1); Sodium 139 mmol/L (136-145)
[2020-06-05] MEDS: dexamethasone 10 mg/mL INJ IVP (21:58)
[2020-06-05] MEDS: acetaminophen 500 mg Tablet 1000 MG PO (21:58)
== END 2020-06-05 21:59 | disposition home or self-care (01) ==
PROVIDERS: Emergency Provider Nurse Practitioner Family
DX: U07.1 COVID-19 (principal); E11.9 Type 2 diabetes mellitus without complications; I10 Essential (primary) hypertension
CPT/HCPCS: 12345; 71045; 80053; 85025; 96375; 99282; 99283; J1100; J2405; J7040

== ENCOUNTER 2020-06-26 22:16 | Emergency (ER) | payer MEDICAID, SELFPAY ==
[2020-06-26 22:30] VITALS: BP 126/77; PULSE 107; RESP 18; TEMP 36.4; O2SAT 96; BMI 33.3
--- NOTE | 2020-06-26 22:37 | W.ED.GENADLT ---
HPI - General Adult General: Chief complaint: General Medical Stated complaint: high blood sugar 512 Time Seen by Provider: 06/26/20 22:34 Source: patient Mode of arrival: ambulatory Limitations: no limitations History of Present Illness: HPI narrative: 29-year-old male who has a history of diabetes. States he was diagnosed with Covid 4 weeks ago and has not been taking his Metformin like he was supposed to. He states that over the last few days he has had polyuria polydipsia denies he checked his blood sugar and it was over 500. He denies any vomiting or diarrhea. Denies any fever. He states he feels like he is dehydrated. Denies any worsening or improving factors. Associated symptoms: Deny chest pain, dyspnea, headache(s), nausea, rash or vomiting Review of Systems Const: Denies: fever(s), chills, body aches or change in appetite Eyes: Denies: blurry vision or eye discomfort ENMT: Denies: throat pain or dental pain Card: Denies: chest pain Resp: Denies: dyspnea GI: Denies: abdominal pain, nausea, vomiting or diarrhea : Denies: dysuria Musc: Denies: neck pain or back pain Skin/Breast: Denies: rash Neuro: Denies: headache(s) Psych: Denies: depression Shade/Lymph: Denies: easy bruising All/Imm: Denies: urticaria PFSH ED PFSH: Medical History Anxiety and depression Asthma Elevated blood-pressure reading without diagnosis of hypertension GERD (gastroesophageal reflux disease) Gout Hypertension Ingrown toenail of both feet Non-insulin dependent type 2 diabetes mellitus PTSD (post-traumatic stress disorder) Family History Mother Hypertension Father Heart disease Brother Hypertension Other Diabetes Social History Smoking and tobacco status: never smoked Marital status: Current occupational status: employed History of recent travel: No Current gender identity: Male Physical Exam Const: COMMON NORMALS: no acute distress, patient oriented x3 and healthy appearing HENMT: COMMON NORMALS: normocephalic and atraumatic HEAD & SCALP: normocephalic and atraumatic Eye: COMMON NORMALS: Equal, round and reactive pupils present and EOMs intact bilaterally PUPIL: Yes Equal, round and reactive pupils present Neck/C-Spine: COMMON NORMALS: full ROM and supple Chest: COMMONS NORMALS: normal inspection of the chest and normal palpation of entire chest wall Resp: COMMON NORMALS: normal respiratory effort, No retractions, No use of accessory muscles and clear to auscultation bilaterally AUSCULTATION: clear to auscultation bilaterally Cardio: COMMON NORMALS: regular rate, regular rhythm and No murmurs present (Cardio) RATE: regular rate RHYTHM: regular rhythm GI: COMMON NORMALS: Normal to inspection, nondistended, normoactive bowel sounds present, Soft to palpation, non-tender and no masses PALPATION: Yes Soft to palpation Extremity: COMMON NORMALS: normal to inspection and full ROM Neuro: COMMON NORMALS: patient oriented x3, moves all extremities and no focal motor deficits Psych: COMMON NORMALS: mental status grossly normal, Normal thought process present and cooperative THOUGHT PROCESS: Normal thought process present Skin: COMMON NORMALS: no rashes or lesions noted and no wounds GENERAL SKIN EXAM: no rashes or lesions noted Course Vital Signs: Vital signs: Vital Signs Temperature 97.6 F 06/26/20 22:30 Pulse Rate 101 H 06/27/20 00:07 Respiratory Rate 16 06/27/20 00:07 Blood Pressure 128/81 06/27/20 00:07 Pulse Oximetry 96 06/27/20 00:07 MDM - General Adult MDM Narrative: Medical decision making narrative: Vin presents here with hyperglycemia likely due to noncompliance of his metformin. Patient is not in DKA. Patient is well-appearing here and is stable for discharge. Patient's blood sugar is improved. He is to follow-up his PCP in 3 to 5 days return if worsening. He understands and agrees the plan. Lab Data: Labs: Lab Results 06/26/20 06/26/20 06/26/20 Range/Units 22:21 22:40 22:41 WBC (4.0-10.0) 10^3/ uL RBC (4.1-5.3) 10^6/u L Hgb (11.7-16.6) g/dL Hct (42.0-52.0) % MCV (80-94) fL MCH (28.0-34.0) pg MCHC (30.0-36.0) g/dL RDW (12.1-15.1) % Plt Count (130-400) 10^3/c mm MPV (7.4-10.4) fL Neut % (Auto) % Lymph % (Auto) % [place] % (Auto) % Eos % (Auto) % Baso % (Auto) % Neut # (Auto) (1.8-7.7) 10^3/u L Lymph # (Auto) (0.8-4.8) 10^3/u L [place] # (Auto) (0.2-0.9) 10^3/u L Eos # (Auto) (0.0-0.8) 10^3/u L Baso # (Auto) (0.0-0.1) 10^3/u L Nucleated RBC % (a uto) % Nucleated RBCs # /100WBC Specimen Type arterial Sample Site right brachial ABG pH 7.40 (7.35-7.45) ABG pCO2 39.6 (35-45) mmHg ABG pO2 76.5 L (80.0-100.0) mmH g ABG HCO3 24.6 (22-26) mmol/L ABG Base Excess -0.1 (-2.0-2.0) mmol/ L Froylan Test N/a Hematocrit 49.1 (42-52) % O2 Delivery Device room air FiO2 21.0 % Specimen Drawn By harkr Assistant Professor Of Criminal Justice ID harkr Sodium 133 L (136-145) mmol/L Potassium 4.0 (3.5-5.1) mmol/L Chloride 95 L (98-107) mmol/L Carbon Dioxide 22 (22-29) mmol/L Anion Gap 20.0 H (5-19) BUN 12 (6-20) mg/dL Creatinine 0.9 (0.7-1.2) mg/dL GFR Calculation 99.8 (90-130) mL/min Glucose 441 H (65-115) mg/dL POC Glucose 440 (70-110) mg/dL Calculated Osmolal ity 295 (285-295) mOsm/k g Calcium 9.7 (8.5-10.5) mg/dL Total Bilirubin 1.0 (0.15-1.2) mg/dL AST 42 H (0-40) U/L ALT 75 H (0-41) U/L Alkaline Phosphata se 108 (40-130) IU/L Total Protein 8.1 (6.6-8.7) g/dL Albumin 4.4 (3.5-5.2) g/dL Globulin 3.7 (1.3-4.6) g/dL Serum Ketones Negative (Negative) 06/26/20 06/27/20 Range/Units 22:55 00:05 WBC 8.9 (4.0-10.0) 10^3/ uL RBC 5.29 (4.1-5.3) 10^6/u L Hgb 16.0 (11.7-16.6) g/dL Hct 45.0 (42.0-52.0) % MCV 85.1 (80-94) fL MCH 30.2 (28.0-34.0) pg MCHC 35.6 (30.0-36.0) g/dL RDW 12.8 (12.1-15.1) % Plt Count 288 (130-400) 10^3/c mm MPV 10.7 H (7.4-10.4) fL Neut % (Auto) 58.4 % Lymph % (Auto) 29.4 % [place] % (Auto) 7.0 % Eos % (Auto) 3.9 % Baso % (Auto) 0.9 % Neut # (Auto) 5.19 (1.8-7.7) 10^3/u L Lymph # (Auto) 2.6 (0.8-4.8) 10^3/u L [place] # (Auto) 0.6 (0.2-0.9) 10^3/u L Eos # (Auto) 0.4 (0.0-0.8) 10^3/u L Baso # (Auto) 0.1 (0.0-0.1) 10^3/u L Nucleated RBC % (a uto) 0 % Nucleated RBCs # 0.0 /100WBC Specimen Type Sample Site ABG pH (7.35-7.45) ABG pCO2 (35-45) mmHg ABG pO2 (80.0-100.0) mmH g ABG HCO3 (22-26) mmol/L ABG Base Excess (-2.0-2.0) mmol/ L Froylan Test Hematocrit (42-52) % O2 Delivery Device FiO2 % Specimen Drawn By Assistant Professor Of Criminal Justice ID Sodium (136-145) mmol/L Potassium (3.5-5.1) mmol/L Chloride (98-107) mmol/L Carbon Dioxide (22-29) mmol/L Anion Gap (5-19) BUN (6-20) mg/dL Creatinine (0.7-1.2) mg/dL GFR Calculation (90-130) mL/min Glucose (65-115) mg/dL POC Glucose 231 (70-110) mg/dL Calculated Osmolal ity (285-295) mOsm/k g Calcium (8.5-10.5) mg/dL Total Bilirubin (0.15-1.2) mg/dL AST (0-40) U/L ALT (0-41) U/L Alkaline Phosphata se (40-130) IU/L Total Protein (6.6-8.7) g/dL Albumin (3.5-5.2) g/dL Globulin (1.3-4.6) g/dL Serum Ketones (Negative) Discharge Plan Discharge Patient Disposition: Home Clinical Impression: Hyperglycemia Condition: Stable Prescriptions: No Action acetaminophen [Tylenol] 325 mg tablet 325 mg PO QID PRNRF: 0 albuterol sulfate [ProAir HFA] 90 mcg/actuation HFA aerosol inhaler 2 puff INHALATION Q6H PRN (Reason: shortness of breath or wheezing) Qty: 8.5 RF: 0 allopurinol 300 mg tablet 300 mg PO DAILY 90 Days Qty: 90 RF: 0 metformin 1,000 mg tablet 1,000 mg PO BID 90 Days Qty: 180 RF: 1 fluticasone propion-salmeterol [Advair Diskus] 100-50 mcg/dose blister with device 1 inh INHALATION BID Qty: 60 RF: 0 Zofran 4 mg tablet 4 mg PO Q4H PRN (Reason: nausea and vomiting) Qty: 10 RF: 0 Discharge Orders: Discharge Order (Routine); Ordered 06/27/20 Ordered By: Sofía Martinez Discharge Diet: Advance as tolerated Discharge Activity: Resume usual activity Patient Instructions: Diabetic Hyperglycemia (ED) Coding Level of Care Code ED Director Of Entertainment for Chg 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
[2020-06-26 22:42] VITALS: BP 142/89; PULSE 110; O2SAT 96
[2020-06-26 22:53] LABS: ABG PCO2 39.6 mmHg (35-45); Base Excess ABG -0.1 mmol/L (-2.0-2.0); HCO3 ABG 24.6 mmol/L (22-26); Oxygen Device room air; PO2 ABG 76.5 mmHg (80.0-100.0)
[2020-06-26 22:54] LABS: Arterial Blood Gas Hematocrit 49.1 % (42-52)
[2020-06-26] MEDS: insulin regular-human 100 units/1 mL 10 UNIT IVP (23:06)
[2020-06-26 23:08] LABS: Basophils # 0.1 10^3/uL (0.0-0.1); Basophils % 0.9 %; Eosinophils # 0.4 10^3/uL (0.0-0.8); Eosinophils % 3.9 %; Lymphocytes # 2.6 10^3/uL (0.8-4.8); Lymphocytes % 29.4 %; Mean Corpuscular HGB Conc 35.6 g/dL (30.0-36.0); Mean Corpuscular Hemoglobin 30.2 pg (28.0-34.0); Mean Corpuscular Volume 85.1 fL (80-94); Mean Platelet Volume 10.7 fL (7.4-10.4); Monocytes # 0.6 10^3/uL (0.2-0.9); Neutrophils # 5.19 10^3/uL (1.8-7.7); Neutrophils % 58.4 %; Nucleated Red Blood Cells % 0 %; Platelet Count 288 10^3/cmm (130-400); Red Blood Count 5.29 10^6/uL (4.1-5.3); Red Cell Distribution Width 12.8 % (12.1-15.1); White Blood Count 8.9 10^3/uL (4.0-10.0)
[2020-06-26] MEDS: sodium chloride 0.9% 1,000 ML 999 ML IV (23:09)
[2020-06-26 23:15] LABS: Ketone (Acetest) Serum Negative (Negative)
[2020-06-26 23:27] LABS: Alanine Aminotransferase 75 U/L (0-41); Albumin Level 4.4 g/dL (3.5-5.2); Alkaline Phosphatase 108 IU/L (40-130); Aspartate Amino Transferase 42 U/L (0-40); Blood Urea Nitrogen 12 mg/dL (6-20); Calcium 9.7 mg/dL (8.5-10.5); Carbon Dioxide 22 mmol/L (22-29); Chloride 95 mmol/L (98-107); Globulin 3.7 g/dL (1.3-4.6); Glomerular Filtration Rate 99.8 mL/min (90-130); Glucose 441 mg/dL (65-115); Osmolality Calculated 295 mOsm/kg (285-295); Sodium 133 mmol/L (136-145); Total Protein 8.1 g/dL (6.6-8.7)
[2020-06-26 23:55] LABS: Glucose Point of Care 440 mg/dL (70-110)
--- NOTE | 2020-06-27 00:05 | PC.NURSE ---
GLU: 231
--- NOTE | 2020-06-27 00:06 | PC.NURSE ---
Blood glucose is 231
[2020-06-27 00:07] VITALS: BP 128/81; PULSE 101; RESP 16; O2SAT 96
[2020-06-27 00:07] LABS: Glucose Point of Care 231 mg/dL (70-110)
[2020-06-27 00:20] VITALS: BP 132/79; PULSE 100; RESP 16; O2SAT 97
== END 2020-06-27 00:22 | disposition home or self-care (01) ==
PROVIDERS: Emergency Provider Emergency Medicine
DX: E11.65 Type 2 diabetes mellitus with hyperglycemia (principal); Z79.84 Long term (current) use of oral hypoglycemic drugs; I10 Essential (primary) hypertension
CPT/HCPCS: 12345; 36416; 36600; 80053; 82009; 82803; 82962; 85025; 96361; 96374; 99283; J1815; J7030

== ENCOUNTER → 2020-07-02 14:51 | Outpatient (BNVA) | payer MEDICAID, SELFPAY | PROVIDERS: Visit Provider Psychiatry & Neurology Psychiatry | DX: F33.1 Major depressive disorder, recurrent, moderate (principal); F41.1 Generalized anxiety disorder; F40.10 Social phobia, unspecified; F43.12 Post-traumatic stress disorder, chronic | CPT/HCPCS: 99204 ==

== ENCOUNTER → 2020-08-06 07:56 | Outpatient (BNVA) | payer MEDICAID, SELFPAY | PROVIDERS: Visit Provider Psychiatry & Neurology Psychiatry | DX: F43.12 Post-traumatic stress disorder, chronic (principal); F40.10 Social phobia, unspecified; F41.1 Generalized anxiety disorder; F33.1 Major depressive disorder, recurrent, moderate | CPT/HCPCS: 99213 ==

== ENCOUNTER → 2020-08-08 07:54 | Outpatient (BNVA) | payer MEDICAID, SELFPAY | PROVIDERS: Visit Provider Family Medicine Adult Medicine | DX: R42 Dizziness and giddiness (principal); E11.9 Type 2 diabetes mellitus without complications; F32.9 Major depressive disorder, single episode, unspecified; J45.20 Mild intermittent asthma, uncomplicated; F41.9 Anxiety disorder, unspecified; M1A.0790 Idiopathic chronic gout, unspecified ankle and foot, without tophus (tophi); M19.90 Unspecified osteoarthritis, unspecified site; M25.569 Pain in unspecified knee; H66.90 Otitis media, unspecified, unspecified ear; E66.9 Obesity, unspecified | CPT/HCPCS: 83036; 84443 ==

== ENCOUNTER → 2021-04-02 15:41 | Outpatient (BNVA) | payer MEDICAID, SELFPAY | PROVIDERS: PCP Podiatrist Foot & Ankle Surgery; Visit Provider Psychiatry & Neurology Psychiatry | DX: F41.9 Anxiety disorder, unspecified (principal); F32.9 Major depressive disorder, single episode, unspecified | CPT/HCPCS: 99214 ==

== ENCOUNTER → 2021-06-02 15:40 | Outpatient (BNVA) | payer MEDICAID, SELFPAY | PROVIDERS: PCP Podiatrist Foot & Ankle Surgery; Visit Provider Psychiatry & Neurology Psychiatry | DX: F41.9 Anxiety disorder, unspecified (principal); F32.9 Major depressive disorder, single episode, unspecified | CPT/HCPCS: 80061; 83036; 99214 ==

== ENCOUNTER → 2021-08-14 15:06 | Outpatient (BNVA) | payer MEDICAID, SELFPAY ==
[2021-06-03 09:15] VITALS: BP 125/77; BMI 33.3
== END ==
PROVIDERS: PCP Podiatrist Foot & Ankle Surgery; Visit Provider Psychiatry & Neurology Psychiatry
DX: F41.9 Anxiety disorder, unspecified (principal); F32.9 Major depressive disorder, single episode, unspecified
CPT/HCPCS: 99214

== ENCOUNTER → 2021-10-06 16:32 | Outpatient (BNVA) | payer MEDICAID, SELFPAY ==
[2021-06-03 09:15] VITALS: BP 125/77; BMI 33.3
== END ==
PROVIDERS: PCP Podiatrist Foot & Ankle Surgery; Visit Provider Nurse Practitioner
DX: R21 Rash and other nonspecific skin eruption (principal)
CPT/HCPCS: 87880

== ENCOUNTER → 2021-11-21 10:44 | Outpatient (BNVA) | payer MEDICAID, OTHER, SELFPAY ==
[2021-06-03 09:15] VITALS: BP 125/77; BMI 33.3
== END ==
PROVIDERS: PCP Podiatrist Foot & Ankle Surgery; Visit Provider Psychiatry & Neurology Psychiatry
DX: F33.1 Major depressive disorder, recurrent, moderate (principal); F41.1 Generalized anxiety disorder; F43.12 Post-traumatic stress disorder, chronic; F40.10 Social phobia, unspecified; R42 Dizziness and giddiness
CPT/HCPCS: 99214

== ENCOUNTER 2021-12-06 10:41 | Emergency (ER) | payer MEDICAID, SELFPAY ==
[2021-06-03 09:15] VITALS: BP 125/77; BMI 33.3
[2021-12-06 11:07] VITALS: BP 162/84; PULSE 75; RESP 16; TEMP 36.7; O2SAT 100; BMI 34.1
--- NOTE | 2021-12-06 11:08 | W.ED.NAVMDI ---
HPI - Nausea/Vomiting/Diarrhea General: Chief complaint: Abdominal Pain Stated complaint: n/v Time Seen by Provider: 12/06/21 10:58 History of Present Illness: Ms. Daugherty is a 31-year-old gentleman with history of psychiatric care, type 2 diabetes, hypertension, asthma who presents to the emergency department due to abdominal pain. Symptoms began about 2 hours prior to arrival and woke him up from sleep. He denies any specific activity that he can think of that provoked symptoms. He endorses right lower quadrant and suprapubic abdominal pain which is moderate to severe in intensity. Symptoms have persisted and he has had associated nausea vomiting x3. He did have a large bowel movement this morning however this did not change his symptoms. He denies similar episodes in the past. Denies history of abdominal trauma or surgeries. No other specific changes in health, exacerbating, or alleviating factors identified. Onset (ago): hour(s) Description of vomiting: watery Description of diarrhea: watery Associated nausea: Yes Associated abdominal pain: Yes Location of pain: RLQ and Suprapubic Pain consistency: constant Severity: severe Associated symtoms: Reports nausea Review of Systems General: Reports: 10 or more systems reviewed and unremarkable except in HPI and below GI: Reports: nausea PFSH ED PFSH: Medical History Anxiety and depression Asthma COVID-19 Dizziness and giddiness Elevated blood-pressure reading without diagnosis of hypertension Generalized anxiety disorder GERD (gastroesophageal reflux disease) Gout Hypertension Ingrown toenail of both feet Major depressive disorder, recurrent, moderate Non-insulin dependent type 2 diabetes mellitus Obesity (BMI 30.0-34.9) Osteoarthritis Otitis media Post-traumatic stress disorder, chronic PTSD (post-traumatic stress disorder) Social anxiety disorder Family History Mother Hypertension Father Heart disease Brother Hypertension Other Diabetes Social History Smoking and tobacco status: never smoked Second hand smoke exposure: Yes Alcohol intake: current Alcohol intake frequency: holidays/special occasions only Alcohol type: wine Adopted: No Caregiver/support person: No Lives independently: Yes Household members: spouse and children Housing: Manufactured/Mobile home Marital status: Marital status details: Been 5 years Number of children: 3 Number of grandchildren: 0 Highest education level completed: GED or Equivalent service: No Current occupational status: employed 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 [place] Current occupational exposures/hazards: No Pets and animals: Yes Pets & animals: dog(s) History of recent travel: No Leisure activites: other Leisure activities details: walks, phone, TV, plays with his dog, and horseback riding Sexually active: Yes Current gender identity: Male Zaira/Presybeterian: Jew Special zaira needs: No Agree to transfusion: Yes Financial difficulty paying for basics: Somewhat Hard Physical Exam Const: COMMON NORMALS: alert GENERAL APPEARANCE: cooperative, well developed and in distress (Due to pain) HENMT: COMMON NORMALS: normocephalic and atraumatic HEAD & SCALP: normocephalic and atraumatic THROAT: posterior oropharynx normal Eye: COMMON NORMALS: conjunctivae normal CONJUNCTIVA: Yes conjunctivae normal SCLERA: sclerae normal Neck/C-Spine: COMMON NORMALS: supple GENERAL: Yes trachea midline Resp: COMMON NORMALS: normal respiratory effort and clear to auscultation bilaterally EFFORT & INSPECTION: Yes able to speak in complete sentences AUSCULTATION: clear to auscultation bilaterally Cardio: COMMON NORMALS: regular rate and regular rhythm RATE: regular rate RHYTHM: regular rhythm GI: COMMON NORMALS: Soft to palpation PALPATION: Yes Soft to palpation, Yes Tenderness to palpation present (GI) Details: RLQ, Yes Guarding due to palpation present (GI) in the RLQ, No Rigid due to palpation and Yes Rebound tenderness present Details: McBurney's point PERCUSSION: normal to percussion Extremity: GENERAL: Yes normal exam except as noted and No edema Neuro: COMMON NORMALS: moves all extremities SENSORIUM/ORIENTATION: Yes alert and No Orientation impaired Psych: COMMON NORMALS: mental status grossly normal and Normal thought process present THOUGHT PROCESS: Normal thought process present Course ED course: - Patient was seen and evaluated by me at bedside - Patient placed on cardiac monitors, IV access obtained - Initial evaluation notable for exam as above - Labs personally interpreted by me - Antiemetic and antinausea ordered. - Labs notable for normal leukocytosis, normal hemoglobin. Metabolic panel with evidence of dehydration, renal function preserved. T bili mildly elevated of unclear etiology, perhaps related to dehydration. 2+ blood on urine dip, no evidence of UTI - Imaging notable for 2 mm right UVJ stone with mild right-sided hydroureteronephrosis with perinephric/periureteral stranding - Fluids and Toradol - Upon serial reexamination after treatment the patient was improved - Based on patient history, evaluation, and testing as interpreted the most likely cause of the patient's condition is right 2 mm UVJ ureterolithiasis - The results of ED evaluation were discussed with the patient including prescriptions and/or symptomatic cares (if applicable) including appropriate and responsible use, followup plan, and return precautions. The patient verbalized understanding and felt safe for discharge. - Patient discharged in satisfactory condition. Note: Click bubbles or prepopulated thomson in note writing are used for assistance with data collection and billing and are inherently more limited than narrative and other text portions of this note. Please use narrative for additional clinical history and defer to narrative/free test for any case of contradictory information. If information appears in only free text or click bubble it should be considered present or absent as reported. Please contact note residential mortgage underwriter for clarifications of clinical information or contradictory information. MDM is a brief summary, contradictory or erroneous seeming information should be clarified and full note should be reviewed. Vital Signs: Vital signs: Vital Signs Temperature 98.0 F 12/06/21 11:36 Pulse Rate 85 12/06/21 14:39 Respiratory Rate 16 12/06/21 13:29 Blood Pressure 101/56 12/06/21 14:39 Pulse Oximetry 94 12/06/21 14:39 MDM - Nausea/Vomiting/Diarrhea Medical Decision Making 31-year-old gentleman presenting with right lower quadrant abdominal pain. Found to have right-sided UVJ stone, no evidence of UTI. Improved with treatment. Satisfactory for outpatient management. Medical Records I reviewed the patient's medical records. Lab Data I reviewed the patient's lab results. : 12/06/21 11:34 12/06/21 11:34 Radiology Impressions Abdomen/Pelvis CT 12/06/21 11:22 IMPRESSION: 1. Mild right-sided hydroureteronephrosis and perinephric/periureteral stranding, secondary to a 2 mm right UVJ calculus. 2. Additional findings, as above. Laboratory Results WBC 10.2 10^3/uL (4.0-10.0) H 12/06/21 11:34 RBC 5.27 10^6/uL (4.1-5.3) 12/06/21 11:34 Hgb 16.4 g/dL (11.7-16.6) 12/06/21 11:34 Hct 45.4 % (42.0-52.0) 12/06/21 11:34 MCV 86.1 fl (80-94) 12/06/21 11:34 MCH 31.1 pg (28.0-34.0) 12/06/21 11:34 MCHC 36.1 g/dL (30.0-36.0) H 12/06/21 11:34 RDW 12.9 % (12.1-15.1) 12/06/21 11:34 Plt Count 258 10^3/cmm (130-400) 12/06/21 11:34 MPV 9.9 fL (7.4-10.4) 12/06/21 11:34 Neut % (Auto) 69.1 % 12/06/21 11:34 Lymph % (Auto) 21.5 % 12/06/21 11:34 [place] % (Auto) 6.2 % 12/06/21 11:34 Eos % (Auto) 2.0 % 12/06/21 11:34 Baso % (Auto) 0.9 % 12/06/21 11:34 Neut # (Auto) 7.03 10^3/uL (1.8-7.7) 12/06/21 11:34 Lymph # (Auto) 2.2 10^3/uL (0.8-4.8) 12/06/21 11:34 [place] # (Auto) 0.6 10^3/uL (0.2-0.9) 12/06/21 11:34 Eos # (Auto) 0.2 10^3/uL (0.0-0.8) 12/06/21 11:34 Baso # (Auto) 0.1 10^3/uL (0.0-0.1) 12/06/21 11:34 Nucleated RBC % (auto) 0 % 12/06/21 11:34 Nucleated RBCs # 0.0 /100WBC 12/06/21 11:34 Sodium 134 mmol/L (136-145) L 12/06/21 11:34 Potassium 3.9 mmol/L (3.5-5.1) 12/06/21 11:34 Chloride 98 mmol/L (98-107) 12/06/21 11:34 Carbon Dioxide 20 mmol/L (22-29) L 12/06/21 11:34 Anion Gap 19.9 (5-19) H 12/06/21 11:34 BUN 11 mg/dL (6-20) 12/06/21 11:34 Creatinine 1.1 mg/dL (0.7-1.2) 12/06/21 11:34 GFR Calculation 78.1 mL/min (90-130) L 12/06/21 11:34 Glucose 165 mg/dL (65-115) H 12/06/21 11:34 POC Glucose 175 mg/dL (70-110) H 12/06/21 11:44 Calculated Osmolality 281 mOsm/kg (285-295) L 12/06/21 11:34 Calcium 10.3 mg/dL (8.5-10.5) 12/06/21 11:34 Total Bilirubin 1.4 mg/dL (0.15-1.2) H 12/06/21 11:34 AST 24 U/L (0-40) 12/06/21 11:34 ALT 36 U/L (0-41) 12/06/21 11:34 Alkaline Phosphatase 76 IU/L (40-130) 12/06/21 11:34 Total Protein 9.1 g/dL (6.6-8.7) H 12/06/21 11:34 Albumin 4.8 g/dL (3.5-5.2) 12/06/21 11:34 Globulin 4.3 g/dL (1.3-4.6) 12/06/21 11:34 Lipase 32 U/L (13-60) 12/06/21 11:34 Urine Color Yellow (Yellow) 12/06/21 11:29 Urine Appearance Clear (CLEAR) 12/06/21 11:29 Urine pH 6.5 (5-7) 12/06/21 11:29 Ur Specific [place] 1.015 (1.005-1.030) 12/06/21 11:29 Urine Protein Neg (Negative) 12/06/21 11:29 Urine Glucose (UA) Norm (Normal) 12/06/21 11:29 Urine Ketones Negative (Negative) 12/06/21 11:29 Urine Blood 2+ (Negative) H 12/06/21 11:29 Urine Nitrate Negative (Negative) 12/06/21 11:29 Urine Bilirubin Neg (Negative) 12/06/21 11:29 Urine Urobilinogen Norm mg/dL (Negative) 12/06/21 11:29 Ur Leukocyte Esterase Negative (Negative) 12/06/21 11:29 Urine RBC 0-4 /hpf (0-2) H 12/06/21 11:29 Urine WBC None /hpf (0-5) 12/06/21 11:29 Ur Squamous Epith Cells None /hpf (0-5) 12/06/21 11:29 Amorphous Sediment Not Reportable 12/06/21 11:29 Urine Bacteria None /hpf (NONE) 12/06/21 11:29 Discharge Plan Discharge Patient Disposition: Home Clinical Impression: Calculus of ureterovesical junction (UVJ), Abdominal pain, Nausea & vomiting Condition: Stable Prescriptions: New Flomax 0.4 mg capsule 0.4 mg PO DAILY Qty: 10 0RF Rx Instructions: start morning 4/3 ondansetron 4 mg tablet,disintegrating 4 mg PO Q8H PRN (Reason: nausea and vomiting) Qty: 15 0RF oxycodone 5 mg tablet 5 mg PO Q4H PRN (Reason: pain) Qty: 6 0RF No Action acetaminophen [Tylenol] 325 mg tablet 325 mg PO QID PRN0RF lisinopril 5 mg tablet 2.5 mg PO DAILY 0RF gabapentin 100 mg capsule 100 mg PO .HS 0RF rosuvastatin [Crestor] 5 mg tablet 5 mg PO DAILY 0RF albuterol sulfate [ProAir HFA] 90 mcg/actuation HFA aerosol inhaler 2 puff INHALATION Q6H PRN (Reason: shortness of breath or wheezing) Qty: 8.5 0RF allopurinol 300 mg tablet 300 mg PO DAILY 90 Days Qty: 90 0RF metformin 1,000 mg tablet 1,000 mg PO BID 90 Days Qty: 180 1RF fluticasone propion-salmeterol [Advair Diskus] 100-50 mcg/dose blister with device 1 inh INHALATION BID Qty: 60 0RF bupropion HCl [Wellbutrin XL] 300 mg tablet extended release 24 hr 300 mg PO QAM Qty: 30 2RF duloxetine [Cymbalta] 60 mg capsule,delayed release(DR/EC) 60 mg PO DAILY Qty: 30 2RF trazodone 100 mg tablet 200 mg PO .HS Qty: 60 2RF duloxetine [Cymbalta] 30 mg capsule,delayed release(DR/EC) 30 mg PO DAILY Qty: 30 2RF Discharge Orders: Discharge ED (Routine); Ordered 12/06/21 Ordered By: Sagar Faye Referrals: Jayesh Srinivasan DPM [Physician] - Discharge Diet: Usual diet Discharge Activity: Resume usual activity Patient Instructions: Dehydration (ED), Kidney Stones (ED), How to Strain Your Urine (ED), Opioid Safety Activity Restrictions/Additional Instructions: Thank you for visiting the emergency department. You were seen and evaluated for abdominal pain with nausea and vomiting. You were found to have a kidney stone. Kidney stone measures 2 mm and is at the most distal part of the ureter at the junction with the bladder and will likely pass on its own. There is mild associated backup of fluid as well as local irritation. You will be given analgesia, antinausea medication, and Flomax which should help this pass. You strain your urine and look for the stone. Please follow-up with your primary care provider. I recommend repeat labs within 1 week to ensure improvement. Please return to the emergency department for worsening symptoms, failure to improve, or anything else that you are concerned about and feel needs emergency department evaluation. Coding Level of Care Code ED Associate Professor Of Philosophy for Ria Kim Exam Comprehensive
--- NOTE | 2021-12-06 11:22 | CTR_ITS ---
PROCEDURE INFORMATION: Exam: CT Abdomen And Pelvis With Contrast Exam date and time: 12/06/2021 12:31 PM Age: 31 years old Clinical indication: Abdominal pain; Localized; Right lower quadrant (rlq); Additional info: Rlq pain, ? appendicitis TECHNIQUE: Imaging protocol: Computed tomography of the abdomen and pelvis with contrast. Axial, coronal and sagittal reformatted images were created and reviewed. Radiation optimization: All CT scans at this facility use at least one of these dose optimization techniques: automated exposure control; mA and/or kV adjustment per patient size (includes targeted exams where dose is matched to clinical indication); or iterative reconstruction. Contrast material: OMNI 300; Contrast volume: 95 ml; Contrast route: INTRAVENOUS (IV); COMPARISON: CT abdomen pelvis w con* [id number] 04/07/2018 12:28 AM RADIATION DOSE METRICS: Total DLP (mGy-cm): 1745.63 FINDINGS: Liver: Mild hepatic steatosis. Gallbladder and bile ducts: No radiodense gallstones. No biliary ductal dilatation. Pancreas: Unremarkable. Spleen: Unremarkable. Adrenal glands: Normal. No mass. Kidneys and ureters: Mild right-sided hydroureteronephrosis and perinephric/periureteral stranding, secondary to a 2 mm right UVJ calculus (axial image 75 and coronal image 27). Nonobstructing right renal calculi. Stomach and bowel: No bowel wall thickening. No obstruction. No pneumatosis. Appendix: Normal. Intraperitoneal space: No free fluid. No organized fluid collection. No free air. Vasculature: Unremarkable. No aneurysm. Lymph nodes: No pathologically enlarged lymph nodes. Urinary bladder: Unremarkable as visualized. Reproductive: Unremarkable. Bones/joints: No acute osseous abnormality. Soft tissues: Fat containing umbilical hernia. CT/CT abdomen pelvis w con* [id number] IMPRESSION: 1. Mild right-sided hydroureteronephrosis and perinephric/periureteral stranding, secondary to a 2 mm right UVJ calculus. 2. Additional findings, as above.
[2021-12-06 11:36] VITALS: BP 162/84; PULSE 75; RESP 16; TEMP 36.7; O2SAT 100
[2021-12-06 11:42] LABS: Basophils # 0.1 10^3/uL (0.0-0.1); Basophils % 0.9 %; Eosinophils # 0.2 10^3/uL (0.0-0.8); Hematocrit 45.4 % (42.0-52.0); Hemoglobin 16.4 g/dL (11.7-16.6); Lymphocytes # 2.2 10^3/uL (0.8-4.8); Lymphocytes % 21.5 %; Mean Corpuscular HGB Conc 36.1 g/dL (30.0-36.0); Mean Corpuscular Hemoglobin 31.1 pg (28.0-34.0); Mean Corpuscular Volume 86.1 fl (80-94); Mean Platelet Volume 9.9 fL (7.4-10.4); Monocytes # 0.6 10^3/uL (0.2-0.9); Monocytes % 6.2 %; Neutrophils # 7.03 10^3/uL (1.8-7.7); Neutrophils % 69.1 %; Nucleated Red Blood Cells % 0 %; Platelet Count 258 10^3/cmm (130-400); Red Blood Count 5.27 10^6/uL (4.1-5.3); Red Cell Distribution Width 12.9 % (12.1-15.1); White Blood Count 10.2 10^3/uL (4.0-10.0)
[2021-12-06 11:47] LABS: Glucose Point of Care 175 mg/dL (70-110)
[2021-12-06] MEDS: ondansetron 2 mg/ML SDV 2 mL 4 MG IVP (11:47)
[2021-12-06] MEDS: fentaNYL 50 mcg/mL INJ 2mL 75 MCG IVP ×2 (11:48→12:46)
[2021-12-06 12:09] LABS: Alanine Aminotransferase 36 U/L (0-41); Albumin Level 4.8 g/dL (3.5-5.2); Alkaline Phosphatase 76 IU/L (40-130); Anion Gap 19.9 (5-19); Aspartate Amino Transferase 24 U/L (0-40); Blood Urea Nitrogen 11 mg/dL (6-20); Calcium 10.3 mg/dL (8.5-10.5); Carbon Dioxide 20 mmol/L (22-29); Chloride 98 mmol/L (98-107); Globulin 4.3 g/dL (1.3-4.6); Glomerular Filtration Rate 78.1 mL/min (90-130); Glucose 165 mg/dL (65-115); Lipase 32 U/L (13-60); Osmolality Calculated 281 mOsm/kg (285-295); Potassium 3.9 mmol/L (3.5-5.1); Sodium 134 mmol/L (136-145); Total Bilirubin 1.4 mg/dL (0.15-1.2); Total Protein 9.1 g/dL (6.6-8.7)
[2021-12-06 12:19] LABS: Glucose Urine UA Norm (Normal); Ketones Urine Negative (Negative); Protein Urine Neg (Negative); Specific Gravity, Urine 1.015 (1.005-1.030); Urine Appearance Clear (CLEAR); Urine Color Yellow (Yellow); pH Urine 6.5 (5-7)
[2021-12-06 12:20] LABS: Add Urine Microscopic? YES; Bilirubin Urine Neg (Negative); Blood Urine 2+ (Negative); Leukocyte Esterase Urine Negative (Negative); Nitrate Urine Negative (Negative); Urobilinogen Urine Norm (Negative)
[2021-12-06 12:22] LABS: RBC Urine 0-4 /hpf (0-2)
[2021-12-06 12:23] LABS: Add Urine Culture? No
[2021-12-06] MEDS: iohexol 300 mg/mL 100 mL Btl IV (12:31)
[2021-12-06] MEDS: sodium chloride 0.9% 1,000 ML 999 ML IV (13:26)
[2021-12-06] MEDS: ketorolac 30 mg/mL INJ 15 MG IVP (13:28)
[2021-12-06] MEDS: tamsulosin 0.4 mg Capsule PO (13:28)
[2021-12-06 13:29] VITALS: BP 126/80; PULSE 69; RESP 16; O2SAT 97
[2021-12-06 14:39] VITALS: BP 101/56; PULSE 85; O2SAT 94
== END 2021-12-06 14:41 | disposition home or self-care (01) ==
PROVIDERS: Emergency Provider Emergency Medicine; PCP Nurse Practitioner Family
DX: N13.2 Hydronephrosis with renal and ureteral calculous obstruction (principal); E11.9 Type 2 diabetes mellitus without complications; I10 Essential (primary) hypertension; E86.0 Dehydration; Z79.84 Long term (current) use of oral hypoglycemic drugs
CPT/HCPCS: 36416; 74177; 80053; 81001; 82962; 83690; 85025; 96361; 96374; 96375; 99284; J1885; J2405; J3010; J7030; Q9967

== ENCOUNTER → 2022-01-02 15:16 | Outpatient (BNVA) | payer MEDICAID, SELFPAY ==
[2021-06-03 09:15] VITALS: BP 125/77; BMI 33.3
== END ==
PROVIDERS: PCP Nurse Practitioner Family; Visit Provider Psychiatry & Neurology Psychiatry
DX: R42 Dizziness and giddiness (principal); F40.10 Social phobia, unspecified; F43.12 Post-traumatic stress disorder, chronic; F41.1 Generalized anxiety disorder; F33.1 Major depressive disorder, recurrent, moderate
CPT/HCPCS: 99213

== ENCOUNTER → 2022-02-03 14:02 | Outpatient (BNVA) | payer OTHER, SELFPAY ==
[2021-06-03 09:15] VITALS: BP 125/77; BMI 33.3
== END ==
PROVIDERS: PCP Nurse Practitioner Family; Visit Provider Psychiatry & Neurology Psychiatry
DX: F41.1 Generalized anxiety disorder (principal)
CPT/HCPCS: 80061; 83036

== ENCOUNTER 2022-04-15 22:38 | Emergency (ER) | payer MEDICAID, SELFPAY ==
[2022-02-10 16:41] VITALS: BP 127/83; BMI 32.1
[2022-04-15 22:44] VITALS: BP 122/70; PULSE 105; RESP 20; TEMP 36.6; O2SAT 97; BMI 32.9
--- NOTE | 2022-04-15 23:45 | ECG_ITS ---
[facility] Test Date: 2022-04-15 Pat Name: Vin Daugherty Department: Room: Gender: Male Knockout Worker: : 1990 Requested By: Emily Sanchez Order Number: [id number] Avery MD: Carmen Perez M.D. Measurements Intervals [place] Rate: 104 P: 36 [place]: 156 QRS: 37 QRSD: 98 T: 34 QT: 325 QTc: 428 Interpretive Statements SINUS TACHYCARDIA NONSPECIFIC T-WAVE ABNORMALITY ABNORMAL RHYTHM ECG Compared to ECG 04/07/2018 05:09:47 Sinus rhythm no longer present T-wave abnormality still present Electronically Signed On 04-16-2022 18:41:39 CDT by Carmen Perez M.D. [id number]
== END 2022-04-16 00:08 | disposition left against medical advice (07) ==
PROVIDERS: Emergency Provider Family Medicine; PCP Nurse Practitioner Family
DX: Z53.21 Procedure and treatment not carried out due to patient leaving prior to being seen by health care provider (principal)
CPT/HCPCS: 93005

== ENCOUNTER 2022-04-26 05:49 | Emergency (ER) | payer MEDICAID, SELFPAY ==
[2022-02-10 16:41] VITALS: BP 127/83; BMI 32.1
[2022-04-26 05:53] VITALS: BP 160/90; PULSE 76; RESP 24; TEMP 36.3; O2SAT 76; BMI 33.3
--- NOTE | 2022-04-26 06:17 | CTR_ITS ---
PROCEDURE INFORMATION: Exam: CT Abdomen And Pelvis With Contrast Exam date and time: 04/26/2022 6:53 AM Age: 31 years old Clinical indication: Abdominal pain; Localized; Right lower quadrant (rlq); Additional info: Rlq abd pain TECHNIQUE: Imaging protocol: Computed tomography of the abdomen and pelvis with contrast. Radiation optimization: All CT scans at this facility use at least one of these dose optimization techniques: automated exposure control; mA and/or kV adjustment per patient size (includes targeted exams where dose is matched to clinical indication); or iterative reconstruction. Contrast material: OMNI 350; Contrast volume: 80 ml; Contrast route: INTRAVENOUS (IV); COMPARISON: CT abdomen pelvis w con* [id number] 12/06/2021 12:31 PM RADIATION DOSE METRICS: Total DLP (mGy-cm): 765.24 FINDINGS: Lungs: The visualized lung bases demonstrate no focal airspace opacification or pleural effusion. Heart: The visualized heart is within normal limits for size. There is no evidence of pericardial abnormality. Liver: The liver is normal in size and contour. Gallbladder and bile ducts: The gallbladder is distended with normal wall thickness and does not demonstrate calcified gallstones. No intra- or extra-hepatic biliary ductal dilatation. Pancreas: The pancreas appears normal. Spleen: The spleen appears normal. Adrenal glands: The adrenals appear normal. Kidneys and ureters: Punctate stone in the upper pole the right kidney, similar to prior exam. 3.5 mm stone noted at the right ureterovesical junction. Mild hydroureter and mild hydronephrosis. Trace perinephric and periureteral fat stranding. No left-sided nephrolithiasis. Stomach and bowel: The stomach is unremarkable. The small bowel loops are not abnormally dilated. The large bowel loops are not abnormally dilated. Appendix: The appendix appears normal. Intraperitoneal space: No ascites or significant fluid collection. Vasculature: The aorta is nonaneurysmal. The IVC appears normal. Lymph nodes: There are no enlarged lymph nodes. Urinary bladder: The bladder is distended and demonstrates no focal contour abnormality. Reproductive: The prostate is unremarkable. The seminal vesicles are unremarkable. Bones/joints: Unremarkable. Soft tissues: 1.5 cm fat containing umbilical hernia noted. CT/CT abdomen pelvis w con* [id number] IMPRESSION: 1. 3.5 mm stone noted at the right ureterovesical junction, causing mild hydroureter/hydronephrosis and trace periureteral/perinephric fat stranding. 2. Punctate stone in the upper pole of the right kidney, similar to prior exam. 3. No left-sided nephrolithiasis. 4. 1.5 cm fat containing umbilical hernia noted.
[2022-04-26 06:32] LABS: Basophils # 0.1 10^3/uL (0.0-0.1); Eosinophils # 0.3 10^3/uL (0.0-0.8); Eosinophils % 3.5 %; Hematocrit 43.9 % (42.0-52.0); Hemoglobin 15.5 g/dL (11.7-16.6); Lymphocytes # 2.9 10^3/uL (0.8-4.8); Lymphocytes % 32.4 %; Mean Corpuscular HGB Conc 35.3 g/dL (30.0-36.0); Mean Corpuscular Hemoglobin 30.9 pg (28.0-34.0); Mean Corpuscular Volume 87.6 fl (80-94); Mean Platelet Volume 10.2 fL (7.4-10.4); Monocytes # 0.6 10^3/uL (0.2-0.9); Neutrophils # 4.98 10^3/uL (1.8-7.7); Neutrophils % 55.9 %; Nucleated Red Blood Cells % 0 %; Platelet Count 235 10^3/cmm (130-400); Red Blood Count 5.01 10^6/uL (4.1-5.3); Red Cell Distribution Width 12.7 % (12.1-15.1); White Blood Count 8.9 10^3/uL (4.0-10.0)
[2022-04-26] MEDS: acetaminophen 500 mg Tablet 1000 MG PO (06:33)
[2022-04-26] MEDS: sodium chloride 0.9% 1,000 ML 999 ML IV (06:33)
[2022-04-26] MEDS: ketorolac 30 mg/mL INJ 15 MG IVP (06:33)
--- NOTE | 2022-04-26 06:47 | ED_ITS ---
HPI - Abdominal Pain General: Chief Complaint: Abdominal Pain Stated Complaint: abd pain, blood in urine Time Seen by Provider: 04/26/22 06:00 History of Present Illness: 31-year-old male presenting today with sudden onset right lower quadrant abdominal pain. He notes pain is severe. Coming and going. With radiation from his flank. Also notes that he started to pee blood this morning. Has a history of kidney stones in the past. Notes this is similar to prior kidney stones. He notes nausea and vomiting. He denies diarrhea. No significant surgical history. No fevers or chills. Did not take anything for symptoms for arrival. Review of Systems General: Reports: 10 or more systems reviewed and unremarkable except in HPI and below PFSH ED PFSH: Medical History (Updated 04/16/22 @ 18:17 by Praveen Lynch MD) Anxiety and depression Asthma COVID-19 Elevated blood-pressure reading without diagnosis of hypertension Generalized anxiety disorder GERD (gastroesophageal reflux disease) Gout Hypertension Ingrown toenail of both feet Left shoulder strain Major depressive disorder, recurrent, moderate Muscle strain of left upper back Non-insulin dependent type 2 diabetes mellitus Obesity (BMI 30.0-34.9) Osteoarthritis Post-traumatic stress disorder, chronic PTSD (post-traumatic stress disorder) Social anxiety disorder Family History Mother Hypertension Father Heart disease Brother Hypertension Other Diabetes Social History (Updated 03/12/22 @ 09:55 by Sagar Bang LPN) Smoking and tobacco status: never smoked Quit status (tobacco): has quit using tobacco Year quit tobacco: 01/2022 Second hand smoke exposure: Yes Alcohol intake: current Alcohol intake frequency: holidays/special occasions only Alcohol type: hard liquor Adopted: No Caregiver/support person: No Lives independently: Yes Household members: spouse and children Housing: Manufactured/Mobile home Marital status: Marital status details: Been 6 years Number of children: 3 Number of grandchildren: 0 Highest education level completed: GED or Equivalent service: No Current occupational status: employed 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 [place] Current occupational exposures/hazards: No Pets and animals: Yes Pets & animals: dog(s) History of recent travel: Yes Details: [place] only Out of state: Yes Leisure activites: music and other Leisure activities details: walks, phone, TV, plays with his dog, and horseback riding Sexually active: Yes Current gender identity: Male Zaira/Mu-Ism: Religion Special zaira needs: No Agree to transfusion: Yes Financial difficulty paying for basics: Somewhat Hard Physical Exam Const: COMMON NORMALS: no acute distress, patient oriented x3 and alert GENERAL APPEARANCE: cooperative ORIENTATION/CONSCIOUSNESS: Yes awake, Yes oriented to person, Yes oriented to place and Yes oriented to time HENMT: COMMON NORMALS: normocephalic, atraumatic, external ears normal, Normal external nose present and moist oral mucous membranes HEAD & SCALP: normal to inspection, normocephalic and atraumatic NOSE: Normal external nose present GENERAL EAR: hearing grossly impaired EXTERNAL EAR: Yes external ears normal Eye: COMMON NORMALS: Equal, round and reactive pupils present, EOMs intact bilaterally, conjunctivae normal and no scleral icterus GENERAL EYE: appearance normal, both eyes and all related structures EYELID: eyelids normal CONJUNCTIVA: Yes conjunctivae normal SCLERA: sclerae normal PUPIL: Yes Equal, round and reactive pupils present Neck/C-Spine: COMMON NORMALS: full ROM, supple and no JVD GENERAL: Yes normal visual inspection Lymph: LYMPHATIC: no lymphadenopathy noted and no lymphedema noted Chest: COMMONS NORMALS: normal inspection of the chest Resp: COMMON NORMALS: normal respiratory effort, No retractions and No use of accessory muscles Cardio: COMMON NORMALS: no JVD, regular rate and regular rhythm RATE: regular rate RHYTHM: regular rhythm GI: COMMON NORMALS: Normal to inspection, nondistended, normoactive bowel sounds present : COMMON NORMALS: Yes no CVA tenderness BLADDER/KIDNEY EXAM: Yes no CVA tenderness Back/Pelvis: COMMON NORMALS: no CVA tenderness and thoracic and lumbar spine normal to inspection Extremity: COMMON NORMALS: normal to inspection, full ROM and capillary refill normal GENERAL: Yes normal exam except as noted Neuro: COMMON NORMALS: patient oriented x3, CN's II-XII intact bilaterally, moves all extremities, no focal motor deficits, no sensory deficits noted and gait normal SENSORIUM/ORIENTATION: Yes alert, Yes oriented to person, Yes oriented to place and Yes oriented to time Psych: COMMON NORMALS: mental status grossly normal, Normal thought process present, cooperative and normal affect THOUGHT PROCESS: Normal thought process present Skin: COMMON NORMALS: no rashes or lesions noted and no wounds GENERAL SKIN EXAM: no rashes or lesions noted Course Vital Signs: Vital signs: Vital Signs Temperature 97.4 F L 04/26/22 05:53 Pulse Rate 76 04/26/22 05:53 Respiratory Rate 24 H 04/26/22 05:53 Blood Pressure 160/90 04/26/22 05:53 Pulse Oximetry 76 L 04/26/22 05:53 Oxygen Delivery Me thod 04/26/22 05:53 MDM - Abdominal Pain Medical Decision Making 31-year-old male presenting with sudden onset right lower quadrant pain. Patient with a 3.5mm right sided UVJ stone. CMP is unremarkable. CBC is unremarkable. Urinalysis is unremarkable. Will give patient diclofenac, Tylenol, oxycodone for breakthrough pain for home. Patient was given strict return cautions. Recommended routine outpatient follow-up. Lab Data : 04/26/22 06:27 04/26/22 06:27 Labs/Radiology: Radiology Impressions Abdomen/Pelvis CT 04/26/22 06:17 IMPRESSION: 1. 3.5 mm stone noted at the right ureterovesical junction, causing mild hydroureter/hydronephrosis and trace periureteral/perinephric fat stranding. 2. Punctate stone in the upper pole of the right kidney, similar to prior exam. 3. No left-sided nephrolithiasis. 4. 1.5 cm fat containing umbilical hernia noted. Laboratory Results WBC 8.9 10^3/uL (4.0-10.0) 04/26/22 06:27 RBC 5.01 10^6/uL (4.1-5.3) 04/26/22 06:27 Hgb 15.5 g/dL (11.7-16.6) 04/26/22 06:27 Hct 43.9 % (42.0-52.0) 04/26/22 06:27 MCV 87.6 fl (80-94) 04/26/22 06:27 MCH 30.9 pg (28.0-34.0) 04/26/22 06:27 MCHC 35.3 g/dL (30.0-36.0) 04/26/22 06:27 RDW 12.7 % (12.1-15.1) 04/26/22 06:27 Plt Count 235 10^3/cmm (130-400) 04/26/22 06:27 MPV 10.2 fL (7.4-10.4) 04/26/22 06:27 Neut % (Auto) 55.9 % 04/26/22 06:27 Lymph % (Auto) 32.4 % 04/26/22 06:27 [place] % (Auto) 7.0 % 04/26/22 06:27 Eos % (Auto) 3.5 % 04/26/22 06:27 Baso % (Auto) 1.0 % 04/26/22 06:27 Neut # (Auto) 4.98 10^3/uL (1.8-7.7) 04/26/22 06:27 Lymph # (Auto) 2.9 10^3/uL (0.8-4.8) 04/26/22 06:27 [place] # (Auto) 0.6 10^3/uL (0.2-0.9) 04/26/22 06:27 Eos # (Auto) 0.3 10^3/uL (0.0-0.8) 04/26/22 06:27 Baso # (Auto) 0.1 10^3/uL (0.0-0.1) 04/26/22 06:27 Nucleated RBC % (auto) 0 % 04/26/22 06:27 Nucleated RBCs # 0.0 /100WBC 04/26/22 06:27 Sodium 142 mmol/L (136-145) 04/26/22 06:27 Potassium 3.6 mmol/L (3.5-5.1) 04/26/22 06:27 Chloride 102 mmol/L (98-107) 04/26/22 06:27 Carbon Dioxide 26 mmol/L (22-29) 04/26/22 06:27 Anion Gap 17.6 (5-19) 04/26/22 06:27 BUN 13 mg/dL (6-20) 04/26/22 06:27 Creatinine 1.0 mg/dL (0.7-1.2) 04/26/22 06:27 GFR Calculation 87.2 mL/min (90-130) L 04/26/22 06:27 Glucose 135 mg/dL (65-115) H 04/26/22 06:27 Calculated Osmolality 296 mOsm/kg (285-295) H 04/26/22 06:27 Calcium 10.1 mg/dL (8.5-10.5) 04/26/22 06:27 Total Bilirubin 0.9 mg/dL (0.15-1.2) 04/26/22 06:27 AST 19 U/L (0-40) 04/26/22 06:27 ALT 35 U/L (0-41) 04/26/22 06:27 Alkaline Phosphatase 64 U/L (40-130) 04/26/22 06:27 Total Protein 7.6 g/dL (6.6-8.7) 04/26/22 06:27 Albumin 4.9 g/dL (3.5-5.2) 04/26/22 06:27 Globulin 2.7 g/dL (1.3-4.6) 04/26/22 06:27 Urine Color Lauren (Yellow) 04/26/22 07:09 Urine Appearance Hazy (CLEAR) A 04/26/22 07:09 Urine pH 7 (5-7) 04/26/22 07:09 Ur Specific [place] 1.015 (1.005-1.030) 04/26/22 07:09 Urine Protein Trace (Negative) 04/26/22 07:09 Urine Glucose (UA) Norm (Normal) 04/26/22 07:09 Urine Ketones Negative (Negative) 04/26/22 07:09 Urine Blood 3+ (Negative) H 04/26/22 07:09 Urine Nitrate Negative (Negative) 04/26/22 07:09 Urine Bilirubin Neg (Negative) 04/26/22 07:09 Urine Urobilinogen Norm mg/dL (Negative) 04/26/22 07:09 Ur Leukocyte Esterase Negative (Negative) 04/26/22 07:09 Urine RBC Too numerous to cnt /hpf (0-2) H 04/26/22 07:09 Urine WBC 5-10 /hpf (0-5) H 04/26/22 07:09 Ur Squamous Epith Cells None /hpf (0-5) 04/26/22 07:09 Amorphous Sediment Not Reportable 04/26/22 07:09 Urine Bacteria 1+ /hpf (NONE) H 04/26/22 07:09 Urine Mucus 1+ /hpf 04/26/22 07:09 Discharge Plan Discharge Patient Disposition: Home Condition: Stable Prescriptions: New oxycodone 5 mg tablet 5 mg PO Q6H PRN (Reason: pain) Qty: 10 0RF diclofenac sodium 75 mg tablet,delayed release (DR/EC) 75 mg PO BID Qty: 30 0RF No Action acetaminophen [Tylenol] 325 mg tablet 325 mg PO QID PRN lisinopril 5 mg tablet 2.5 mg PO DAILY gabapentin 100 mg capsule 100 mg PO .HS rosuvastatin [Crestor] 5 mg tablet 5 mg PO DAILY albuterol sulfate [ProAir HFA] 90 mcg/actuation HFA aerosol inhaler 2 puff INHALATION Q6H PRN (Reason: shortness of breath or wheezing) Qty: 8.5 0RF allopurinol 300 mg tablet 300 mg PO DAILY 90 Days Qty: 90 0RF metformin 1,000 mg tablet 1,000 mg PO BID 90 Days Qty: 180 1RF bupropion HCl [Wellbutrin XL] 300 mg tablet extended release 24 hr 300 mg PO QAM Qty: 30 2RF duloxetine [Cymbalta] 30 mg capsule,delayed release(DR/EC) 30 mg PO DAILY Qty: 30 2RF duloxetine [Cymbalta] 60 mg capsule,delayed release(DR/EC) 60 mg PO DAILY Qty: 30 2RF Rx Instructions: Take 60 and 30 mg for total of 90 mg daily trazodone 100 mg tablet 200 mg PO .HS Qty: 60 2RF ondansetron 4 mg tablet,disintegrating 4 mg PO Q8H PRN (Reason: nausea and vomiting) Qty: 15 0RF Discharge Orders: Discharge ED (Routine); Ordered 04/26/22 Ordered By: Mark Radford Referrals: Jacqueline Estrella FNP [Primary Care Provider] - Discharge Diet: Advance as tolerated Discharge Activity: Resume usual activity Patient Instructions: Opioid Safety Stand Alone Forms: Work/School Release Coding Level of Care Code ED 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
[2022-04-26 06:57] LABS: Alanine Aminotransferase 35 U/L (0-41); Albumin Level 4.9 g/dL (3.5-5.2); Alkaline Phosphatase 64 U/L (40-130); Anion Gap 17.6 (5-19); Aspartate Amino Transferase 19 U/L (0-40); Blood Urea Nitrogen 13 mg/dL (6-20); Calcium 10.1 mg/dL (8.5-10.5); Carbon Dioxide 26 mmol/L (22-29); Chloride 102 mmol/L (98-107); Globulin 2.7 g/dL (1.3-4.6); Glomerular Filtration Rate 87.2 mL/min (90-130); Glucose 135 mg/dL (65-115); Osmolality Calculated 296 mOsm/kg (285-295); Potassium 3.6 mmol/L (3.5-5.1); Sodium 142 mmol/L (136-145); Total Bilirubin 0.9 mg/dL (0.15-1.2); Total Protein 7.6 g/dL (6.6-8.7)
[2022-04-26] MEDS: iohexol 350 mg/mL 100 mL Btl IV (06:58)
[2022-04-26 07:38] LABS: Add Urine Microscopic? YES; Bilirubin Urine Neg (Negative); Blood Urine 3+ (Negative); Glucose Urine UA Norm (Normal); Ketones Urine Negative (Negative); Leukocyte Esterase Urine Negative (Negative); Nitrate Urine Negative (Negative); Protein Urine Trace (Negative); Specific Gravity, Urine 1.015 (1.005-1.030); Urine Appearance Hazy (CLEAR); Urine Color Amber (Yellow); Urobilinogen Urine Norm (Negative); pH Urine 7 (5-7)
[2022-04-26 07:39] LABS: Add Urine Culture? Yes; Bacteria Urine 1+ /hpf; Mucus Urine 1+ /hpf; RBC Urine TOO NUMEROUS TO CNT /hpf (0-2)
[2022-04-26 07:55] VITALS: PULSE 73; RESP 16; O2SAT 98
== END 2022-04-26 07:54 | disposition home or self-care (01) ==
PROVIDERS: Emergency Provider Emergency Medicine; PCP Nurse Practitioner Family
DX: R10.31 Right lower quadrant pain (principal); R31.9 Hematuria, unspecified; Z79.84 Long term (current) use of oral hypoglycemic drugs; Z87.891 Personal history of nicotine dependence; I10 Essential (primary) hypertension; E11.9 Type 2 diabetes mellitus without complications
CPT/HCPCS: 74177; 80053; 81001; 85025; 87086; 96361; 96374; 99285; J1885; J7030; Q9967

== ENCOUNTER → 2022-04-30 14:03 | Outpatient (BNVA) | payer MEDICAID, SELFPAY ==
[2022-02-10 16:41] VITALS: BP 127/83; BMI 32.1
== END ==
PROVIDERS: PCP Nurse Practitioner Family; Visit Provider Internal Medicine
DX: E11.649 Type 2 diabetes mellitus with hypoglycemia without coma (principal); R42 Dizziness and giddiness; E78.2 Mixed hyperlipidemia; Z79.84 Long term (current) use of oral hypoglycemic drugs
CPT/HCPCS: 99204

== ENCOUNTER → 2022-08-13 13:47 | Outpatient (BNVA) | payer MEDICAID, SELFPAY ==
[2022-02-10 16:41] VITALS: BP 127/83; BMI 32.1
== END ==
PROVIDERS: PCP Nurse Practitioner Family; Visit Provider Family Medicine
DX: E11.9 Type 2 diabetes mellitus without complications (principal); E78.2 Mixed hyperlipidemia; J40 Bronchitis, not specified as acute or chronic; J06.9 Acute upper respiratory infection, unspecified
CPT/HCPCS: 80053; 80061; 82043; 83036; 85025

== ENCOUNTER 2022-08-19 21:04 | Emergency (ER) | payer MEDICAID, SELFPAY ==
[2022-02-10 16:41] VITALS: BP 127/83; BMI 32.1
[2022-08-19 21:12] VITALS: BP 135/82; PULSE 96; RESP 17; TEMP 36.6; O2SAT 96; BMI 34.1
[2022-08-19 21:50] LABS: Basophils # 0.1 10^3/uL (0.0-0.1); Basophils % 0.9 %; Eosinophils # 0.2 10^3/uL (0.0-0.8); Eosinophils % 1.5 %; Hemoglobin 15.6 g/dL (11.7-16.6); Lymphocytes # 3.8 10^3/uL (0.8-4.8); Mean Corpuscular HGB Conc 37.1 g/dL (30.0-36.0); Mean Corpuscular Hemoglobin 31.5 pg (28.0-34.0); Mean Corpuscular Volume 84.7 fl (80-94); Mean Platelet Volume 10.2 fL (7.4-10.4); Monocytes # 0.8 10^3/uL (0.2-0.9); Monocytes % 7.2 %; Neutrophils # 6.14 10^3/uL (1.8-7.7); Neutrophils % 55.1 %; Nucleated Red Blood Cells % 0 %; Platelet Count 267 10^3/cmm (130-400); Red Blood Count 4.96 10^6/uL (4.1-5.3); Red Cell Distribution Width 12.5 % (12.1-15.1); White Blood Count 11.1 10^3/uL (4.0-10.0)
[2022-08-19 21:50] LABS: Glucose Point of Care 336 mg/dL (70-110)
[2022-08-19] MEDS: sodium chloride 0.9% 1,000 ML 999 ML IV (21:50)
--- NOTE | 2022-08-19 21:57 | ED_ITS ---
HPI - General Adult General: Chief complaint: General Medical Stated complaint: high bs Time Seen by Provider: 08/19/22 21:33 Source: patient Mode of arrival: ambulatory Limitations: no limitations History of Present Illness: 31-year-old male has a history of diabetes he states he is on metformin for his diabetes states he has had some generalized illness last 1 to 2 days with some body aches he states that his blood sugars been running higher than normal today at 372 at home. He denies any vomiting denies any diarrhea he is in no distress here. He denies any pain anywhere. Associated symptoms: Reports malaise; Deny chest pain, dyspnea, headache(s), nausea, rash or vomiting Review of Systems Const: Reports: malaise; Denies: fever(s), chills, body aches or change in appetite Eyes: Denies: blurry vision or eye discomfort ENMT: Denies: throat pain or dental pain Card: Denies: chest pain Resp: Denies: dyspnea GI: Denies: abdominal pain, nausea, vomiting or diarrhea : Denies: dysuria Musc: Denies: neck pain or back pain Skin/Breast: Denies: rash Neuro: Denies: headache(s) Psych: Denies: depression Shade/Lymph: Denies: easy bruising All/Imm: Denies: urticaria PFSH ED PFSH: Medical History Asthma COVID-19 Elevated blood-pressure reading without diagnosis of hypertension Generalized anxiety disorder GERD (gastroesophageal reflux disease) Gout Ingrown toenail of both feet Major depressive disorder, recurrent, moderate Non-insulin dependent type 2 diabetes mellitus Obesity (BMI 30.0-34.9) Osteoarthritis Post-traumatic stress disorder, chronic Social anxiety disorder Surgical History No significant past surgical history Family History Mother Hypertension Father Heart disease Brother Hypertension Other Diabetes Social History Smoking and tobacco status: former smoker Quit status (tobacco): has quit using tobacco Year quit tobacco: 01/2022 Second hand smoke exposure: Yes Smoking risk assessment/counseling performed?: No Alcohol intake: current Alcohol intake frequency: holidays/special occasions only Alcohol type: hard liquor Desire information about alcohol rehabilitation?: No Counseling given: No Desire information about substance/drug rehabilitation?: No Counseling given: No Adopted: No Caregiver/support person: No Lives independently: Yes Household members: spouse and children Housing: Manufactured/Mobile home Marital status: Marital status details: Been 6 years Number of children: 3 Number of grandchildren: 0 Highest education level completed: GED or Equivalent service: No Current occupational status: employed Current occupation: works at [employer] Current occupational exposures/hazards: No Pets and animals: Yes Pets & animals: dog(s) History of recent travel: Yes Details: [place] only Out of state: Yes Leisure activites: music and other Leisure activities details: walks, phone, TV, plays with his dog, and horseback riding Sexually active: Yes Current gender identity: Male Zaira/Samaritan: Gnosticist Special zaira needs: No Agree to transfusion: Yes Financial difficulty paying for basics: Somewhat Hard Physical Exam Const: COMMON NORMALS: no acute distress, patient oriented x3 and healthy appearing HENMT: COMMON NORMALS: normocephalic and atraumatic HEAD & SCALP: normocephalic and atraumatic Eye: COMMON NORMALS: Equal, round and reactive pupils present and EOMs intact bilaterally PUPIL: Yes Equal, round and reactive pupils present Neck/C-Spine: COMMON NORMALS: full ROM and supple Chest: COMMONS NORMALS: normal inspection of the chest and normal palpation of entire chest wall Resp: COMMON NORMALS: normal respiratory effort, No retractions, No use of accessory muscles and clear to auscultation bilaterally AUSCULTATION: clear to auscultation bilaterally Cardio: COMMON NORMALS: regular rate, regular rhythm and No murmurs present (Cardio) RATE: regular rate RHYTHM: regular rhythm GI: COMMON NORMALS: Normal to inspection, nondistended, normoactive bowel so unds present, Soft to palpation, non-tender and no masses PALPATION: Yes Soft to palpation Extremity: COMMON NORMALS: normal to inspection and full ROM Neuro: COMMON NORMALS: patient oriented x3, moves all extremities and no focal motor deficits Psych: COMMON NORMALS: mental status grossly normal, Normal thought process present and cooperative THOUGHT PROCESS: Normal thought process present Skin: COMMON NORMALS: no rashes or lesions noted and no wounds GENERAL SKIN EXAM: no rashes or lesions noted Course Vital Signs: Vital signs: Vital Signs Temperature 97.9 F 08/19/22 21:12 Pulse Rate 84 08/19/22 22:51 Respiratory Rate 16 08/19/22 22:51 Blood Pressure 114/56 08/19/22 22:51 Pulse Oximetry 96 08/19/22 22:51 Oxygen Delivery Me thod 08/19/22 22:04 MDM - General Adult Medical Decision Making Patient presents here with hyperglycemia his blood sugars here is improved he is to continue his metformin his blood work is normal he stable for discharge he is to follow-up with PCP and return if worsening. Lab Data 08/19/22 21:45 08/19/22 21:45 Laboratory Results WBC 11.1 10^3/uL (4.0-10.0) H 08/19/22 21:45 RBC 4.96 10^6/uL (4.1-5.3) 08/19/22 21:45 Hgb 15.6 g/dL (11.7-16.6) 08/19/22 21:45 Hct 42.0 % (42.0-52.0) 08/19/22 21:45 MCV 84.7 fl (80-94) 08/19/22 21:45 MCH 31.5 pg (28.0-34.0) 08/19/22 21:45 MCHC 37.1 g/dL (30.0-36.0) H 08/19/22 21:45 RDW 12.5 % (12.1-15.1) 08/19/22 21:45 Plt Count 267 10^3/cmm (130-400) 08/19/22 21:45 MPV 10.2 fL (7.4-10.4) 08/19/22 21:45 Neut % (Auto) 55.1 % 08/19/22 21:45 Lymph % (Auto) 34.0 % 08/19/22 21:45 [place] % (Auto) 7.2 % 08/19/22 21:45 Eos % (Auto) 1.5 % 08/19/22 21:45 Baso % (Auto) 0.9 % 08/19/22 21:45 Neut # (Auto) 6.14 10^3/uL (1.8-7.7) 08/19/22 21:45 Lymph # (Auto) 3.8 10^3/uL (0.8-4.8) 08/19/22 21:45 [place] # (Auto) 0.8 10^3/uL (0.2-0.9) 08/19/22 21:45 Eos # (Auto) 0.2 10^3/uL (0.0-0.8) 08/19/22 21:45 Baso # (Auto) 0.1 10^3/uL (0.0-0.1) 08/19/22 21:45 Nucleated RBC % (auto) 0 % 08/19/22 21:45 Nucleated RBCs # 0.0 /100WBC 08/19/22 21:45 Sodium 132 mmol/L (136-145) L 08/19/22 21:45 Potassium 3.4 mmol/L (3.5-5.1) L 08/19/22 21:45 Chloride 98 mmol/L (98-107) 08/19/22 21:45 Carbon Dioxide 22 mmol/L (22-29) 08/19/22 21:45 Anion Gap 15.4 (5-19) 08/19/22 21:45 BUN 12 mg/dL (6-20) 08/19/22 21:45 Creatinine 0.9 mg/dL (0.7-1.2) 08/19/22 21:45 GFR Calculation 98.4 mL/min (90-130) 08/19/22 21:45 Glucose 341 mg/dL (65-115) H 08/19/22 21:45 POC Glucose 291 mg/dL (70-110) H 08/19/22 22:50 Calculated Osmolality 287 mOsm/kg (285-295) 08/19/22 21:45 Calcium 8.9 mg/dL (8.5-10.5) 08/19/22 21:45 Total Bilirubin 0.9 mg/dL (0.15-1.2) 08/19/22 21:45 AST 35 U/L (0-40) 08/19/22 21:45 ALT 48 U/L (0-41) H 08/19/22 21:45 Alkaline Phosphatase 77 U/L (40-130) 08/19/22 21:45 Total Protein 7.3 g/dL (6.6-8.7) 08/19/22 21:45 Albumin 4.0 g/dL (3.5-5.2) 08/19/22 21:45 Globulin 3.3 g/dL (1.3-4.6) 08/19/22 21:45 Influenza Type A Ag negative (Negative) 08/19/22 22:00 Influenza Type B Ag negative (Negative) 08/19/22 22:00 Discharge Plan Discharge Patient Disposition: Home Clinical Impression: Hyperglycemia Condition: Stable Prescriptions: No Action acetaminophen [Tylenol] 325 mg tablet 325 mg PO QID PRN lisinopril 5 mg tablet 2.5 mg PO DAILY gabapentin 100 mg capsule 100 mg PO .HS rosuvastatin [Crestor] 5 mg tablet 5 mg PO DAILY allopurinol 300 mg tablet 300 mg PO DAILY 90 Days Qty: 90 0RF metformin 1,000 mg tablet 1,000 mg PO BID 90 Days Qty: 180 1RF indomethacin 50 mg capsule 50 mg PO TID Qty: 20 0RF Rx Instructions: administer with food or milk trazodone 100 mg tablet 200 mg PO .HS Qty: 60 2RF duloxetine [Cymbalta] 30 mg capsule,delayed release(DR/EC) 30 mg PO DAILY Qty: 30 2RF duloxetine [Cymbalta] 60 mg capsule,delayed release(DR/EC) 60 mg PO DAILY Qty: 30 2RF Rx Instructions: Take 60 and 30 mg for total of 90 mg daily bupropion HCl [Wellbutrin XL] 150 mg tablet extended release 24 hr 150 mg PO QAM Qty: 30 0RF prednisone 20 mg tablet 20 mg PO DAILY Qty: 10 0RF Rx Instructions: Take two pills in the AM with food albuterol sulfate [ProAir HFA] 90 mcg/actuation HFA aerosol inhaler 2 puff INHALATION Q6H PRN (Reason: shortness of breath or wheezing) Qty: 8.5 2RF promethazine-DM 6.25-15 mg/5 mL syrup 5 ml PO Q6H PRN (Reason: cough) Qty: 118 0RF Invokana 300 mg tablet 300 mg PO QAM Qty: 30 1RF Discharge Orders: Discharge ED (Routine); Ordered 08/19/22 Ordered By: Sofía Martinez Referrals: Gracie Miranda DO [Primary Care Provider] - 1-3 days Discharge Diet: Advance as tolerated Discharge Activity: Resume usual activity Patient Instructions: Diabetic Hyperglycemia (ED) Coding Level of Care Code ED Bakery Deliverer for Chg 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
[2022-08-19 22:04] VITALS: BP 114/56; PULSE 82; RESP 16; O2SAT 96
[2022-08-19 22:39] LABS: Alanine Aminotransferase 48 U/L (0-41); Alkaline Phosphatase 77 U/L (40-130); Anion Gap 15.4 (5-19); Aspartate Amino Transferase 35 U/L (0-40); Blood Urea Nitrogen 12 mg/dL (6-20); Calcium 8.9 mg/dL (8.5-10.5); Carbon Dioxide 22 mmol/L (22-29); Chloride 98 mmol/L (98-107); Globulin 3.3 g/dL (1.3-4.6); Glomerular Filtration Rate 98.4 mL/min (90-130); Glucose 341 mg/dL (65-115); Osmolality Calculated 287 mOsm/kg (285-295); Potassium 3.4 mmol/L (3.5-5.1); Sodium 132 mmol/L (136-145); Total Bilirubin 0.9 mg/dL (0.15-1.2); Total Protein 7.3 g/dL (6.6-8.7)
[2022-08-19 22:51] VITALS: BP 114/56; PULSE 84; RESP 16; O2SAT 96
[2022-08-19 22:53] LABS: Glucose Point of Care 291 mg/dL (70-110)
[2022-08-19 23:00] LABS: Influenza A by IFA negative (Negative); Influenza B by IFA negative (Negative)
[2022-08-19 23:05] VITALS: BP 125/86; PULSE 81; RESP 16; O2SAT 94
== END 2022-08-19 23:10 | disposition home or self-care (01) ==
PROVIDERS: Emergency Provider Emergency Medicine; PCP Family Medicine
DX: E11.65 Type 2 diabetes mellitus with hyperglycemia (principal); Z79.84 Long term (current) use of oral hypoglycemic drugs; Z87.891 Personal history of nicotine dependence
CPT/HCPCS: 36416; 80053; 82962; 85025; 87804; 96360; 99284; J7030

== ENCOUNTER → 2022-09-22 08:53 | Outpatient (BNVA) | payer MEDICAID, SELFPAY ==
[2022-02-10 16:41] VITALS: BP 127/83; BMI 32.1
== END ==
PROVIDERS: PCP Family Medicine; Visit Provider Podiatrist Foot & Ankle Surgery
DX: E11.8 Type 2 diabetes mellitus with unspecified complications (principal); L60.0 Ingrowing nail; B35.3 Tinea pedis; E11.9 Type 2 diabetes mellitus without complications; Z79.84 Long term (current) use of oral hypoglycemic drugs
CPT/HCPCS: 99214

== ENCOUNTER → 2022-11-06 09:56 | Outpatient (BNVA) | payer MEDICAID, SELFPAY ==
[2022-02-10 16:41] VITALS: BP 127/83; BMI 32.1
== END ==
PROVIDERS: PCP Family Medicine; Visit Provider Family Medicine
DX: E11.9 Type 2 diabetes mellitus without complications (principal); R68.82 Decreased libido
CPT/HCPCS: 80053; 83036; 84403

== ENCOUNTER 2023-01-10 02:12 | Emergency (ER) | payer MEDICAID, SELFPAY ==
[2022-02-10 16:41] VITALS: BP 127/83; BMI 32.1
[2023-01-10 02:17] VITALS: PULSE 123; RESP 20; TEMP 37.4; O2SAT 97; BMI 32.4
[2023-01-10 02:21] VITALS: BP 120/69
== END 2023-01-10 03:01 | disposition left against medical advice (07) ==
PROVIDERS: Emergency Provider Family Medicine; PCP Family Medicine
DX: Z53.21 Procedure and treatment not carried out due to patient leaving prior to being seen by health care provider (principal)

== ENCOUNTER → 2023-05-27 11:30 | Outpatient (BNVA) | payer MEDICAID, SELFPAY ==
[2022-02-10 16:41] VITALS: BP 127/83; BMI 32.1
== END ==
PROVIDERS: PCP Family Medicine; Visit Provider Family Medicine
DX: E11.9 Type 2 diabetes mellitus without complications (principal); G47.33 Obstructive sleep apnea (adult) (pediatric)
CPT/HCPCS: 80053; 83036

== ENCOUNTER → 2023-11-16 10:00 | Outpatient (BNVA) | payer SELFPAY ==
[2022-02-10 16:41] VITALS: BP 127/83; BMI 32.1
== END ==
PROVIDERS: PCP Family Medicine; Visit Provider Family Medicine
DX: Z13.6 Encounter for screening for cardiovascular disorders (principal); E11.9 Type 2 diabetes mellitus without complications; R79.89 Other specified abnormal findings of blood chemistry
CPT/HCPCS: 80053; 80061; 82043; 83036; 84403; 85025

== ENCOUNTER → 2024-03-03 09:37 | Outpatient (BNVA) | payer MEDICAID, SELFPAY ==
[2022-02-10 16:41] VITALS: BP 127/83; BMI 32.1
== END ==
PROVIDERS: PCP Family Medicine; Visit Provider Family Medicine
DX: E11.9 Type 2 diabetes mellitus without complications (principal); R79.89 Other specified abnormal findings of blood chemistry
CPT/HCPCS: 80053; 83036; 84403; 85025

== ENCOUNTER → 2024-09-22 09:02 | Outpatient (BNVA) | payer MEDICAID, SELFPAY ==
[2022-02-10 16:41] VITALS: BP 127/83; BMI 32.1
== END ==
PROVIDERS: PCP Family Medicine; Visit Provider Family Medicine
DX: E11.9 Type 2 diabetes mellitus without complications (principal); R79.89 Other specified abnormal findings of blood chemistry; M10.472 Other secondary gout, left ankle and foot
CPT/HCPCS: 80053; 83036; 84403; 84550; 85025

== ENCOUNTER → 2025-03-13 11:47 | Outpatient (BNVA) | payer MEDICAID, SELFPAY ==
[2022-02-10 16:41] VITALS: BP 127/83; BMI 32.1
== END ==
PROVIDERS: PCP Family Medicine; Visit Provider Family Medicine
DX: E11.9 Type 2 diabetes mellitus without complications (principal)
CPT/HCPCS: 83036

== ENCOUNTER → 2025-06-15 14:12 | Outpatient (BNVA) | payer SELFPAY ==
[2022-02-10 16:41] VITALS: BP 127/83; BMI 32.1
== END ==
PROVIDERS: PCP Family Medicine; Visit Provider Family Medicine
DX: E11.9 Type 2 diabetes mellitus without complications (principal)
CPT/HCPCS: 80048; 83036